=== PATIENT | female | born 1940 | race Caucasian/White ===

== ENCOUNTER → 2017-03-23 | Outpatient (CLI) | payer MEDICARE, BC ==
--- NOTE | 2017-03-23 13:31 | MM ---
Reason for exam: additional evaluation requested from prior study. Last mammogram was performed 1 year and 3 months ago. History: Patient is postmenopausal. No known family history of cancer. Excisional biopsy, January 06, 2012. Excisional biopsy of the left breast. Took estrogen for 2 years. Physical Findings: Nurse did not find any significant physical abnormalities on exam. MG Diagnostic Mammo w CAD MARITZA Bilateral CC and MLO view(s) were taken. Prior study comparison: December 10, 2015, left breast MG 3d work up w/cad LT. December 02, 2015, bilateral MG screening mammo w CAD. The breast tissue is heterogeneously dense. This may lower the sensitivity of mammography. Finding: There is a 7 mm equal density, round mass in the 6 o'clock lower quadrant, anterior position of the right breast. New finding since December 10, 2015 and December 02, 2015. These results were verbally communicated with the patient and result sheet given to the patient on 03/23/17. ASSESSMENT: Incomplete: need additional imaging evaluation, BI-RAD 0 RECOMMENDATION: Ultrasound of the right breast.
--- NOTE | 2017-03-23 13:32 | USB ---
Reason for exam: additional evaluation requested from abnormal screening. History: Patient is postmenopausal. No known family history of cancer. Excisional biopsy, January 06, 2012. Excisional biopsy of the left breast. Took estrogen for 2 years. US Breast Limited RT Right breast ultrasound indicates a 1.8 x 1.4 x 0.7cm oval, mixed lesion at 6 o'clock. No mammographic correlation although spotted in region on mammogram. Multiple cystic areas adjacent to lesion. These results were verbally communicated with the patient and result sheet given to the patient on 03/23/17. ASSESSMENT: Probably benign, BI-RAD 3 RECOMMENDATION: Follow-up diagnostic mammogram and ultrasound of the right breast in 6 months.
== END | disposition home or self-care (01) ==
LOC: RADMAMWWP 07:22
PROVIDERS: ATTEND Family Medicine
DX: R92.8 Other abnormal and inconclusive findings on diagnostic imaging of breast (principal)
CPT/HCPCS: 76642; G0204

== ENCOUNTER → 2017-03-23 | Outpatient (CLI) | payer MEDICARE, BC ==
--- NOTE | 2017-03-23 10:02 | CT ---
EXAMINATION TYPE: CT lumbar spine wo con DATE OF EXAM: 03/23/2017 COMPARISON: NONE HISTORY: Assess for Stenosis per order. Weakness in both legs per patient. CT DLP: 880 mGycm Automated exposure control for dose reduction was used. FINDINGS: There are 5 lumbar type vertebra identified. Lumbar spine shows satisfactory alignment without eviden ce of acute fracture or dislocation. Vertebral body heights and disc space heights are fairly well-ma intained. Spinal canal is fairly well preserved on sagittal images. No large posterior disc herniatio ns are seen. Mild multilevel anterior and lateral spurring is present. Axial images at T12-L1 and L1-L2 levels are felt within normal limits. Axial images at L2-L3 level show mild broad disc bulge but spinal canal is fairly well preserved and bilateral neural foramina are felt patent on axial image 29. Axial images at L3-L4 level show mild broad disc bulge and mild facet arthropathy bilaterally, spinal canal is slightly impinged along posterior lateral aspect on axial image 40. There is mild left grea ter than right anterior-inferior neural foraminal narrowing noted. Axial images at L4-L5 level show mild to moderate facet degenerative changes and ligamentum flavum hy pertrophy effacing posterior lateral thecal sac. There is mild broad disc bulge identified. There is mild right greater than left anterior inferior neural foraminal narrowing at this level identified. Axial images at L5-S1 level show moderate facet degenerative changes bilaterally. Spinal canal is wade rly well preserved. Bilateral neural foramina are patent. There is fairly moderate atherosclerotic change of visualized abdominal aorta. Some ectasia is seen n ear axial image 38, no greater than 3 cm aneurysmal change is noted. There is partial visualization o f a stimulator type device in the posterior pelvis soft tissue. IMPRESSION: Multilevel degenerative changes most prominent in the mid to lower lumbar spine as detailed above.
== END | disposition home or self-care (01) ==
LOC: RADCTMAIN 09:23
PROVIDERS: ATTEND Physical Medicine & Rehabilitation
DX: M47.816 Spondylosis without myelopathy or radiculopathy, lumbar region (principal)
CPT/HCPCS: 72131

== ENCOUNTER → 2018-05-25 | Outpatient (CLI) | payer MEDICARE, BC ==
--- NOTE | 2018-05-26 09:54 | MM ---
Reason for exam: additional evaluation requested from prior study. Last mammogram was performed 1 year and 2 months ago. History: Patient is postmenopausal. No known family history of cancer. Excisional biopsy, January 06, 2012. Excisional biopsy of the left breast. Took estrogen for 2 years. Physical Findings: Nurse did not find any significant physical abnormalities on exam. MG 3D Diag Mammo W/Cad MARITZA Bilateral CC and MLO view(s) were taken. Prior study comparison: March 23, 2017, bilateral MG diagnostic mammo w CAD MARITZA. December 10, 2015, left breast MG 3d work up w/cad LT. Right upper outer quadrant mass appears similar to priors and left upper inner quadrant mass appears similar to priors. Precautionary ultrasound will be performed. There are benign appearing calcifications in the right breast. These results were verbally communicated with the patient and result sheet given to the patient on 05/25/2018 ASSESSMENT: Incomplete: need additional imaging evaluation, BI-RAD 0 RECOMMENDATION: Ultrasound of both breasts. (upper outer quandrant left breast)
--- NOTE | 2018-05-26 10:02 | USB ---
Reason for exam: additional evaluation requested from abnormal screening. History: Patient is postmenopausal. No known family history of cancer. Excisional biopsy, January 06, 2012. Excisional biopsy of the left breast. Took estrogen for 2 years. US Breast Limited BILAT Right complete breast ultrasound includes all four quadrants, the retroareolar region and axilla. Finding demonstrates a 9 x 5 x 8 mm oval hypoechoic lesion at 1:00 o'clock, 6 month follow up recommended, a 5 x 2 x 7 mm lobulated hypoechoic lesion at 7 o'clock, 6 month follow up recommended and a 16 x 9 x 16mm lobular mixed hypoechoic lesion at 10 o'clock, cystic and benign. Left limited breast ultrasound including focal area of concern, retroareolar and axilla demonstrates a 10 x 8 x 8mm oval, solid, hypoechoic lesion at 11 o'clock, solid mass for which biopsy is recommended. These results were verbally communicated with the patient and result sheet given to the patient on 05/25/18. ASSESSMENT: Suspicious, BI-RAD 4 RECOMMENDATION: Ultrasound core biopsy of the left breast. Called Dr. Padilla with mammographic findings office will call and set appointment with patient and arrange biopsy. PRELIMINARY REPORT CALLED AND FAXED TO DR. PADILLA ON 05/26/18.
== END | disposition home or self-care (01) ==
LOC: RADMAMWWP 13:34
PROVIDERS: ATTEND Family Medicine
DX: R92.8 Other abnormal and inconclusive findings on diagnostic imaging of breast (principal)
CPT/HCPCS: 77066; 76642; G0279; 77062

== ENCOUNTER 2018-06-29 12:51 | Emergency (ER) | payer MEDICARE, BC ==
[2018-06-29 13:35] VITALS: RESP 18; TEMP 97.9
--- NOTE | 2018-06-29 14:18 | ED ---
General Adult HPI - General Chief complaint: Recheck/Abnormal Lab/Rx Stated complaint: hypertension Time Seen by Provider: 06/29/18 13:52 Source: patient, family, RN notes reviewed Mode of arrival: wheelchair Limitations: no limitations - History of Present Illness Initial comments: 77-year-old female presents to the emergency department for a chief complaint of hypertension. [facility] for a needle biopsy however patient's blood pressure was 204/117 so they refused to do the procedure and sent her to the emergency department. Patient states she stopped taking her for blood pressure medications 2 days ago because she was having swelling in her left leg and she wanted to see if it was her blood pressure medications causing it. Patient denies any symptoms at this time. She denies shortness of breath, chest pain, headache, visual changes, abdominal pain. Patient states she is feeling absolutely fine. She states she does have her prescriptions filled at home. She states she has an appointment with Dr. Padilla in the next couple days. Patient has no other complaints at this time. She denies fevers or chills. - Related Data Home Medications Medication Instructions Recorded Confirmed Atorvastatin [Lipitor] 20 mg PO DAILY 06/21/18 06/29/18 Furosemide [Lasix] 20 mg PO DAILY 06/21/18 06/29/18 NIFEdipine [Procardia XL] 90 mg PO DAILY 06/21/18 06/29/18 Nadolol [Corgard] 20 mg PO DAILY 06/21/18 06/29/18 Potassium Chloride [K-Tab ER] 10 meq PO DAILY 06/21/18 06/29/18 Valsartan [Diovan] 160 mg PO DAILY 06/21/18 06/29/18 Allergies Allergy/AdvReac Type Severity Reaction Status Date / Time No Known Allergies Allergy Verified 06/29/18 13:58 Review of Systems ROS Statement: Those systems with pertinent positive or pertinent negative responses have been documented in the HPI. ROS Other: All systems not noted in ROS Statement are negative. Past Medical History Past Medical History: Hyperlipidemia, Hypertension, Osteoarthritis (OA), Rheumatoid Arthritis (RA) History of Any Multi-Drug Resistant Organisms: None Reported Past Surgical History: Appendectomy, Bladder Surgery, Breast Surgery, Cholecystectomy, Hysterectomy, Tonsillectomy Additional Past Surgical History / Comment(s): Left breast benign excisional bx , bladder suspension, rectocele Past Anesthesia/Blood Transfusion Reactions: No Reported Reaction Past Psychological History: No Psychological Hx Reported Smoking Status: Former smoker Past Alcohol Use History: None Reported Past Drug Use History: None Reported General Exam Limitations: no limitations General appearance: alert, in no apparent distress (Sitting on edge of bed, in no distress.) Head exam: Present: atraumatic, normocephalic, normal inspection Eye exam: Present: normal appearance, PERRL, EOMI. Absent: scleral icterus, conjunctival injection, nystagmus, periorbital swelling, periorbital tenderness ENT exam: Present: normal exam, normal oropharynx, mucous membranes moist, normal external ear exam Neck exam: Present: normal inspection, full ROM. Absent: tenderness, meningismus, lymphadenopathy Respiratory exam: Present: normal lung sounds bilaterally. Absent: respiratory distress, wheezes, rales, rhonchi, stridor Cardiovascular Exam: Present: regular rate, normal rhythm, normal heart sounds. Absent: systolic murmur, diastolic murmur, rubs, gallop, clicks GI/Abdominal exam: Present: soft, normal bowel sounds. Absent: distended, tenderness, guarding, rebound, rigid Extremities exam: Present: full ROM (moving all extremities) Back exam: Absent: tenderness Neurological exam: Present: alert, oriented X3, CN II-XII intact, normal gait. Absent: motor sensory deficit Psychiatric exam: Present: normal affect, normal mood Skin exam: Present: warm, dry, intact, normal color. Absent: rash Course Vital Signs 06/29/18 06/29/18 13:31 14:30 Temperature 97.9 F Pulse Rate 68 65 Respiratory 18 18 Rate Blood Pressure 160/88 198/81 O2 Sat by Pulse 95 96 Oximetry Medical Decision Making - Medical Decision Making 77-year-old [place] female presents to the emergency department for a chief complaint of hypertension. [facility] and her blood pressure was 204/117 so they sent her to the emergency department. On presentation today blood pressure is 160/88. Patient is completely asymptomatic. She denies any shortness of breath, chest pain, abdominal pain, headache, visual changes, dizziness, confusion. Patient is alert and oriented. No focal neuro deficits. Patient has not taken blood pressure medications in 2 days due to intermittent swelling in the left leg. She states she was trying to see if her blood pressure medications caused this. No swelling in the left leg at this time. Patient did not want medications for blood pressure here in the emergency department because she states she has them at home and would rather not wait. Repeat blood pressure was 198/81. Patient's blood pressure medications were ordered here and given before discharge which she did agree to. Patient states she is ready to go home and will continue her BP medications as directed. She has an appointment with primary care this week and she will follow-up for hypertension at that time. Patient aware to return to the emergency department if she has any symptoms which were discussed with her. Disposition Clinical Impression: Hypertension, Normal exam Disposition: HOME SELF-CARE Condition: Good Instructions: Hypertension (ED) Additional Instructions: Take blood pressure medications when you return home. Please follow up with primary care in 1-2 days to discuss medication regimen. Return to the emergency department if you develop any symptoms such as shortness of breath, chest pain, headache, visual changes, abdominal pain. Is patient prescribed a controlled substance at d/c from ED?: No Referrals: Bradley Padilla MD [Primary Care Provider] - 1-2 days Time of Disposition: 14:17
[2018-06-29] MEDS ORDERED: VALSARTAN 160 MG TAB PO STA (14:29)
[2018-06-29] MEDS ORDERED: NADOLOL 20 MG TAB PO STA (14:30)
[2018-06-29] MEDS ORDERED: NIFEdipine XL 90 MG TAB.ER.24 PO STA (14:30)
[2018-06-29 14:31] VITALS: BP 198/81; PULSE 65
[2018-06-29] MEDS ORDERED: FUROSEMIDE 20 MG TAB PO STA (14:31)
[2018-06-29] MEDS ORDERED: VALSARTAN 40 MG TAB PO STA (14:34)
== END 2018-06-29 15:14 | disposition home or self-care (01) ==
LOC: EC 12:51
DX: I10 Essential (primary) hypertension (principal); E78.5 Hyperlipidemia, unspecified; Z87.891 Personal history of nicotine dependence; Z90.49 Acquired absence of other specified parts of digestive tract; Z90.710 Acquired absence of both cervix and uterus; Z98.890 Other specified postprocedural states; Z79.899 Other long term (current) drug therapy
CPT/HCPCS: 99283

== ENCOUNTER → 2018-06-29 | Day surgery (SDC) | payer MEDICARE, BC ==
[2018-06-29 11:44] VITALS: PULSE 71; RESP 16; TEMP 98.5; BMI 33.9
[2018-06-29 13:29] VITALS: BP 203/79
--- NOTE | 2018-06-29 17:43 | USB ---
EXAMINATION TYPE: US discontinued breast bx LT DATE OF EXAM: 06/29/2018 COMPARISON: 05/25/2018 HISTORY: 77-year-old female referred for ultrasound-guided left breast biopsy, 11:00 lesion. TECHNIQUE: Patient was initially scanned, left breast 11:00 in the circumscribed heterogeneous lesion is identified. However, the patient's blood pressure was elevated initially 180/90. Recheck showed 160/90. Subsequen tly, blood pressure was 200 systolic. Patient reports having known hypertension and did not take her medication. Biopsy deferred at this time and the patient is referred to the emergency room. The patient was escor ed via wheelchair by nursing personnel. Dr. Padilla's office was notified of the canceled procedure. Patient given instructions to call back to reschedule biopsy. IMPRESSION: Canceled left breast 11:00 biopsy due to excessive hypertension. Patient escorted to the ER. Patient given instructions to call back to reschedule.
== END ==
LOC: RADUSWWP 11:12
PROVIDERS: ATTEND Surgery
DX: R92.8 Other abnormal and inconclusive findings on diagnostic imaging of breast (principal); Z53.8 Procedure and treatment not carried out for other reasons

== ENCOUNTER → 2018-07-18 | Day surgery (SDC) | payer MEDICARE, BC ==
[2018-07-18 07:53] VITALS: RESP 16; BMI 33.7
[2018-07-18 09:12] VITALS: BP 200/78; PULSE 62; TEMP 98.4
--- NOTE | 2018-07-18 09:57 | USB ---
EXAMINATION TYPE: US breast aspiration single LT, MG diagnostic mammo LT wo CAD DATE OF EXAM: 07/18/2018 CLINICAL HISTORY: R92.8 Abnormal Mammogram. Abnormal ultrasound TECHNIQUE: Ultrasound guided fine-needle aspiration and/or core biopsy of left breast with clip placement and follow-up two-view mammogram. COMPARISON: Ultrasounds June 29, 2018 and May 25, 2018. Mammogram May and older studies. FINDINGS: The procedure of ultrasound guided fine-needle aspiration and/or core biopsy were both explained to the patient. Benefits, alternatives, and risks were discussed. An informed consent was then obtained. The patient was placed in supine positioning for imaging and for the procedure. Preprocedure imaging redemonstrates a round well-circumscribed heterogeneous hypoechoic roughly 9 mm lesion at 11:00 position zone A in the left breast. The overlying skin was prepped and draped in usual sterile fashion. Lidocaine buffered with bicarbonate was used as anesthetic into the skin and subcutaneous tissue up to area of concern in the left breast. Under ultrasound guidance, a 18-gauge needle was advanced into the lesion which has thick wall. There is successful complete aspiration of lesion. Approximately 1 cc of dark-colored fluid was aspirated. Coil clip was placed at site of lesion under ultrasound guidance. Biopsy was not performed since no residual solid component was present. The patient tolerated the procedure well without any immediate complication. The patient was kept in the radiology department for short stay after the procedure and then discharged home in stable condition. Post procedure mammogram shows successful deployment of clip corresponding to location of previously visualized mass which is not clearly seen after aspiration. IMPRESSION: Successful, uncomplicated ultrasound guided fine-needle aspiration of area of concern in the left breast, full pathology results to follow. Low index of suspicion noted at time of procedure. Patient states history of significant hematoma in the left breast in the past. Suspect this is residual hematoma from remote trauma. Patient continue to have elevated blood pressure prior to and during procedure. Instructed patient to continue to follow up with primary care physician to obtain better control of this. Pathology Results: Benign LEFT BREAST CYST AT 11:00, ULTRASOUND GUIDED ASPIRATION: Numerous hemosiderin laden macrophages, red blood cells and very rare, partially degenerated benign duct epithelial cells all consistent with hemorrhagic breast cyst. Recommendation Follow up ultrasound of the left breast in 6 months. ANNIE
== END | disposition home or self-care (01) ==
LOC: RADUSWWP 07:24
PROVIDERS: ATTEND Surgery
DX: N60.02 Solitary cyst of left breast (principal); R92.8 Other abnormal and inconclusive findings on diagnostic imaging of breast
CPT/HCPCS: 88108; 88305; 77065; 10022; A4648; J2001; 76942

== ENCOUNTER 2018-10-25 19:53 | Emergency (ER) | payer MEDICARE, BC ==
[2018-10-25] MEDS ORDERED: SODIUM CHLORIDE 0.9% 1,000 ML IV STA (20:08)
--- NOTE | 2018-10-25 20:08 | ED ---
Weakness HPI - General Chief complaint: Weakness Stated complaint: weakness Time Seen by Provider: 10/25/18 20:07 Source: patient, EMS, RN notes reviewed, old records reviewed Mode of arrival: EMS Limitations: no limitations, physical limitation - History of Present Illness Initial comments: This is a 78-year-old female the ER for evaluation of weakness 8 weakness and debility decreased ability to ambulate and perform daily ADLs. Patient is brought in by EMS, states that he is having difficulty walking. Denies change in medication -: unknown Location: generalized Severity: mild Severity scale (1-10): 2 Quality: other (No pain) Consistency: constant Improves with: none Worsens with: none Associated Symptoms: denies other symptoms - Related Data Home Medications Medication Instructions Recorded Confirmed Atorvastatin [Lipitor] 20 mg PO DAILY 06/21/18 10/25/18 Furosemide [Lasix] 20 mg PO DAILY 06/21/18 10/25/18 Nadolol [Corgard] 40 mg PO DAILY 06/21/18 10/25/18 Potassium Chloride [K-Tab ER] 10 meq PO DAILY 06/21/18 10/25/18 Losartan [Cozaar] 50 mg PO DAILY 10/25/18 10/25/18 Allergies Allergy/AdvReac Type Severity Reaction Status Date / Time No Known Allergies Allergy Verified 10/25/18 20:12 Review of Systems ROS Statement: Those systems with pertinent positive or pertinent negative responses have been documented in the HPI. ROS Other: All systems not noted in ROS Statement are negative. Past Medical History Past Medical History: Hyperlipidemia, Hypertension, Osteoarthritis (OA), Rheumatoid Arthritis (RA) History of Any Multi-Drug Resistant Organisms: None Reported Past Surgical History: Appendectomy, Bladder Surgery, Breast Surgery, Cholecystectomy, Hysterectomy, Tonsillectomy Additional Past Surgical History / Comment(s): Left breast benign excisional bx , bladder suspension, rectocele Past Anesthesia/Blood Transfusion Reactions: No Reported Reaction Past Psychological History: No Psychological Hx Reported Smoking Status: Former smoker Past Alcohol Use History: None Reported Past Drug Use History: None Reported General Exam Limitations: no limitations, physical limitation General appearance: alert, in no apparent distress Head exam: Present: atraumatic, normocephalic, normal inspection Eye exam: Present: normal appearance, PERRL, EOMI. Absent: scleral icterus, conjunctival injection, periorbital swelling ENT exam: Present: normal exam, mucous membranes moist Neck exam: Present: normal inspection. Absent: tenderness, meningismus, lymphadenopathy Respiratory exam: Present: normal lung sounds bilaterally. Absent: respiratory distress, wheezes, rales, rhonchi, stridor Cardiovascular Exam: Present: regular rate, normal rhythm, normal heart sounds. Absent: systolic murmur, diastolic murmur, rubs, gallop, clicks GI/Abdominal exam: Present: soft, normal bowel sounds. Absent: distended, tenderness, guarding, rebound, rigid Extremities exam: Present: normal inspection, full ROM, normal capillary refill. Absent: tenderness, pedal edema, joint swelling, calf tenderness Back exam: Present: normal inspection Neurological exam: Present: alert, oriented X3, CN II-XII intact Psychiatric exam: Present: normal affect, normal mood Skin exam: Present: warm, dry, intact, normal color. Absent: rash Course Vital Signs 10/25/18 10/25/18 10/25/18 20:00 20:38 21:40 Temperature 99.2 F Pulse Rate 82 80 80 Respiratory 18 18 Rate Blood Pressure 227/108 216/116 176/88 O2 Sat by Pulse 98 96 Oximetry 10/25/18 10/25/18 10/26/18 22:32 23:10 00:50 Temperature 98.4 F 98 F Pulse Rate 79 77 88 Respiratory 18 20 Rate Blood Pressure 195/116 189/87 179/89 O2 Sat by Pulse 98 97 Oximetry - Reevaluation(s) Reevaluation #1: Record is reviewed and noncontributory EKG Findings - EKG Comments: EKG Findings:: EKG shows sinus rhythm rate of 77, GA 166, QRS 82, QTc 445 Medical Decision Making - Medical Decision Making 78 female the ER for evaluation of increased weakness, decreased ability to walk. Patient is here with , he states normal findings currently he will like to take patient home he will work on trying to find increased help or home care for home - Lab Data Result diagrams: 10/25/18 20:17 10/25/18 20:17 Lab Results 10/25/18 10/25/18 10/25/18 Range/Units 20:17 20:17 20:17 WBC 16.5 H (3.8-10.6) k/uL RBC 4.70 (3.80-5.40) m/uL Hgb 14.1 (11.4-16.0) gm/dL Hct 42.2 (34.0-46.0) % MCV 89.7 (80.0-100.0) fL MCH 30.0 (25.0-35.0) pg MCHC 33.5 (31.0-37.0) g/dL RDW 13.3 (11.5-15.5) % Plt Count 351 (150-450) k/uL Neutrophils % 89 % Lymphocytes % 6 % Monocytes % 4 % Eosinophils % 1 % Basophils % 0 % Neutrophils # 14.7 H (1.3-7.7) k/uL Lymphocytes # 1.0 (1.0-4.8) k/uL Monocytes # 0.6 (0-1.0) k/uL Eosinophils # 0.1 (0-0.7) k/uL Basophils # 0.0 (0-0.2) k/uL Sodium 140 (137-145) mmol/L Potassium 3.9 (3.5-5.1) mmol/L Chloride 107 (98-107) mmol/L Carbon Dioxide 23 (22-30) mmol/L Anion Gap 10 mmol/L BUN 14 (7-17) mg/dL Creatinine 0.54 (0.52-1.04) mg/dL Est GFR (CKD-EPI)AfAm >90 (>60 ml/min/1.73 sqM) Est GFR (CKD-EPI)NonAf >90 (>60 ml/min/1.73 sqM) Glucose 126 H (74-99) mg/dL Calcium 8.9 (8.4-10.2) mg/dL Phosphorus 2.5 (2.5-4.5) mg/dL Magnesium 2.0 (1.6-2.3) mg/dL Total Bilirubin 0.7 (0.2-1.3) mg/dL AST 37 H (14-36) U/L ALT 32 (9-52) U/L Alkaline Phosphatase 114 (38-126) U/L Total Creatine Kinase 44 (30-135) U/L CK-MB (CK-2) 0.7 (0.0-2.4) ng/mL CK-MB (CK-2) Rel Index 1.6 Troponin I 0.067 H* (0.000-0.034) ng/mL Total Protein 6.9 (6.3-8.2) g/dL Albumin 4.1 (3.5-5.0) g/dL Urine Color Urine Appearance (Clear) Urine pH (5.0-8.0) Ur Specific [place] (1.001-1.035) Urine Protein (Negative) Urine Glucose (UA) (Negative) Urine Ketones (Negative) Urine Blood (Negative) Urine Nitrite (Negative) Urine Bilirubin (Negative) Urine Urobilinogen (<2.0) mg/dL Ur Leukocyte Esterase (Negative) 10/25/18 Range/Units 21:56 WBC (3.8-10.6) k/uL RBC (3.80-5.40) m/uL Hgb (11.4-16.0) gm/dL Hct (34.0-46.0) % MCV (80.0-100.0) fL MCH (25.0-35.0) pg MCHC (31.0-37.0) g/dL RDW (11.5-15.5) % Plt Count (150-450) k/uL Neutrophils % % Lymphocytes % % Monocytes % % Eosinophils % % Basophils % % Neutrophils # (1.3-7.7) k/uL Lymphocytes # (1.0-4.8) k/uL Monocytes # (0-1.0) k/uL Eosinophils # (0-0.7) k/uL Basophils # (0-0.2) k/uL Sodium (137-145) mmol/L Potassium (3.5-5.1) mmol/L Chloride (98-107) mmol/L Carbon Dioxide (22-30) mmol/L Anion Gap mmol/L BUN (7-17) mg/dL Creatinine (0.52-1.04) mg/dL Est GFR (CKD-EPI)AfAm (>60 ml/min/1.73 sqM) Est GFR (CKD-EPI)NonAf (>60 ml/min/1.73 sqM) Glucose (74-99) mg/dL Calcium (8.4-10.2) mg/dL Phosphorus (2.5-4.5) mg/dL Magnesium (1.6-2.3) mg/dL Total Bilirubin (0.2-1.3) mg/dL AST (14-36) U/L ALT (9-52) U/L Alkaline Phosphatase (38-126) U/L Total Creatine Kinase (30-135) U/L CK-MB (CK-2) (0.0-2.4) ng/mL CK-MB (CK-2) Rel Index Troponin I (0.000-0.034) ng/mL Total Protein (6.3-8.2) g/dL Albumin (3.5-5.0) g/dL Urine Color Light Yellow Urine Appearance Clear (Clear) Urine pH 7.5 (5.0-8.0) Ur Specific [place] 1.006 (1.001-1.035) Urine Protein Negative (Negative) Urine Glucose (UA) Negative (Negative) Urine Ketones Trace H (Negative) Urine Blood Negative (Negative) Urine Nitrite Negative (Negative) Urine Bilirubin Negative (Negative) Urine Urobilinogen <2.0 (<2.0) mg/dL Ur Leukocyte Esterase Negative (Negative) - Radiology Data Radiology results: report reviewed (CT lumbosacral spine negative for acute disease), image reviewed Disposition Clinical Impression: Weakness Disposition: HOME SELF-CARE Condition: Good Instructions: Weakness (ED) Is patient prescribed a controlled substance at d/c from ED?: No Referrals: Bradley Padilla MD [Primary Care Provider] - 1-2 days
[2018-10-25 20:28] LABS: Basophils % (A) 0 %; Eosinophils # (A) 0.1 k/uL (0-0.7); Eosinophils % (A) 1 %; HCT 42.2 % (34.0-46.0); HGB 14.1 gm/dL (11.4-16.0); Lymphocytes % (A) 6 %; MCHC 33.5 g/dL (31.0-37.0); MCV 89.7 fL (80.0-100.0); Monocytes # (A) 0.6 k/uL (0-1.0); Monocytes % (A) 4 %; Neutrophils # (A) 14.7 k/uL (1.3-7.7); Neutrophils % (A) 89 %; Platelet Count 351 k/uL (150-450); RDW 13.3 % (11.5-15.5); WBC 16.5 k/uL (3.8-10.6)
[2018-10-25 20:37] LABS: ALT 32 U/L (9-52); AST 37 U/L (14-36); Albumin 4.1 g/dL (3.5-5.0); Alkaline Phosphatase 114 U/L (38-126); Anion Gap 10 mmol/L; Blood Urea Nitrogen 14 mg/dL (7-17); Calcium 8.9 mg/dL (8.4-10.2); Carbon Dioxide 23 mmol/L (22-30); Chloride 107 mmol/L (98-107); Glucose 126 mg/dL (74-99); Phosphorus 2.5 mg/dL (2.5-4.5); Sodium 140 mmol/L (137-145); Total Bilirubin 0.7 mg/dL (0.2-1.3); Total Protein 6.9 g/dL (6.3-8.2)
[2018-10-25 20:41] LABS: Potassium 3.9 mmol/L (3.5-5.1)
[2018-10-25 21:14] LABS: Creatine Kinase MB 0.7 ng/mL (0.0-2.4)
[2018-10-25 21:21] LABS: Troponin I 0.067 ng/mL (0.000-0.034)
[2018-10-25] MEDS ORDERED: LABETALOL SYRINGE 5 MG/ML IVP STA (21:27)
[2018-10-25 22:13] LABS: Appearance,Urine Clear (Clear); Bilirubin,Urine Negative (Negative); Blood,Urine Negative (Negative); Color,Urine Light Yellow; Glucose,Urine (UA) Negative (Negative); Ketones,Urine Trace (Negative); Leukocyte Esterase,Urine Negative (Negative); Nitrite,Urine Negative (Negative); PH, Urine 7.5 (5.0-8.0); Protein,Urine Negative (Negative); Specific Gravity,Urine 1.006 (1.001-1.035); Urobilinogen,Urine <2.0 mg/dL (<2.0)
--- NOTE | 2018-10-25 23:12 | CT ---
EXAMINATION TYPE: CT lumbar spine wo con DATE OF EXAM: 10/25/2018 11:03 PM COMPARISON: 03/23/2017 HISTORY: Weakness, difficulty walking. No contrast. CT DLP: 1005.4 mGycm Automated exposure control for dose reduction was used. Unenhanced CT of the lumbar spine was performed. Bone and soft tissue window settings are submitted as well as coronal and sagittal reconstructions. Lumbar vertebra have fairly normal spacing and alignment for the patient's age. There is osteopenia. Abdominal aorta is atheromatous. There is no compression fracture. The posterior elements are intact. There is no lumbar paraspinal mass. There is mild facet arthropathy in the lower lumbar spine. There is no evidence of spinal stenosis. Sacroiliac joints appear intact. IMPRESSION: Atheromatous aorta. Negative CT scan lumbar spine. No fracture. This spaces are well-maintained. No c hange compared to old exam. Mild posterior disc bulging at L3-4 L4-5 unchanged and without significan t impingement on the neural elements.
--- NOTE | 2018-10-25 23:16 | CT ---
EXAMINATION TYPE: CT sacrum wo con DATE OF EXAM: 10/25/2018 COMPARISON: HISTORY: Weakness, difficulty walking. No contrast. CT DLP: 1005.4 mGycm Automated exposure control for dose reduction was used. FINDINGS: Multiple axial sections were obtained from the level of L4-S5 vertebra with no contrast. Segments of normal alignment. Sacroiliac joints are intact. There is no focal bone destruction. I see no fracture. There is mild osteopenia. Visualized hip joints are intact. Abdominal aorta is atheroma tous. There is extensive diverticula in the sigmoid colon. There is small amount of free fluid in the pelvis. There is partial visualization of the small bowel mesentery which shows some minimal fat str anding. IMPRESSION: NO ACUTE ABNORMALITY OF THE SACRUM AND COCCYX. IMPLANT NOTED OVER THE LEFT BUTTOCK. NO FRACTURE. ATHEROSCLEROTIC VASCULAR DISEASE. SIGMOID DIVERTICULOSIS. THERE IS SOME FLUID IN THE PEL VIS AND ALSO SOME MESENTERIC EDEMA. THERE IS COULD BE DUE TO INFLAMMATORY PROCESSES WITHIN THE ABDOME N.
[2018-10-26 01:01] VITALS: BP 179/89; PULSE 88; RESP 20; TEMP 98
== END 2018-10-26 00:50 | disposition home or self-care (01) ==
LOC: EC 19:53
DX: R53.1 Weakness (principal); R26.2 Difficulty in walking, not elsewhere classified; E78.5 Hyperlipidemia, unspecified; I10 Essential (primary) hypertension; Z87.891 Personal history of nicotine dependence; Z79.899 Other long term (current) drug therapy
CPT/HCPCS: 36415; 72131; 72192; 80053; 81003; 82550; 82553; 83735; 84100; 84484; 85025; 87077; 87086; 87186; 93005; 96361; 96374; 99285

== ENCOUNTER → 2018-11-11 | Outpatient (CLI) | payer MEDICARE, BC ==
--- NOTE | 2018-11-11 15:15 | US ---
EXAMINATION TYPE: US venous doppler duplex LE DATE OF EXAM: 11/11/2018 2:04 PM COMPARISON: NONE CLINICAL HISTORY: Z86.18 Deep Vein Thrombosis. patient states not being very mobile. Patient states sometimes the left leg swells and having a hx of blood clot in left leg with last many year s ago SIDE PERFORMED: Bilateral TECHNIQUE: The lower extremity deep venous system is examined utilizing real time linear array sonog boubacar with graded compression, doppler sonography and color-flow sonography. VESSELS IMAGED: External Iliac Vein (EIV) Common Femoral Vein Deep Femoral Vein Greater Saphenous Vein * Femoral Vein Popliteal Vein Small Saphenous Vein * Proximal Calf Veins (* superficial vessels) Right Leg: Negative for DVT Left Leg: Negative for DVT IMPRESSION: 1. Bilateral lower extremity ultrasound negative for deep venous thrombosis.
== END | disposition home or self-care (01) ==
LOC: RADUSWWP 13:26
PROVIDERS: ATTEND Internal Medicine Interventional Cardiology
DX: M79.89 Other specified soft tissue disorders (principal); Z86.718 Personal history of other venous thrombosis and embolism
CPT/HCPCS: 93970

== ENCOUNTER 2018-11-24 12:23 | Observation (INO) | payer MEDICARE, BC ==
[2018-11-24] MEDS ORDERED: SODIUM CHLORIDE 0.9% 500 ML 500 ML IV STA (13:05)
--- NOTE | 2018-11-24 13:38 | ED ---
General Adult HPI - General Chief complaint: Weakness Stated complaint: weakness Time Seen by Provider: 11/24/18 12:48 Source: patient, RN notes reviewed, old records reviewed Mode of arrival: wheelchair Limitations: no limitations - History of Present Illness Initial comments: 78-year-old female presents for evaluation of generalized weakness, and difficult ambulating. Patient has had progressive symptoms over the past one month. She was seen by her primary care physician earlier in the week and had had a fall at that time. She did report some left knee and left hip pain but she has been ambulatory since the fall. Denies chest pain. Denies significant dyspnea. Denies fever or chills. Denies abdominal pain. Denies nausea vomiting, denies diarrhea. Denies dysuria, denies increased urinary frequency or urgency. No headache, denies focal numbness or weakness. - Related Data Home Medications Medication Instructions Recorded Confirmed Atorvastatin [Lipitor] 20 mg PO DAILY 06/21/18 11/24/18 Furosemide [Lasix] 20 mg PO DAILY 06/21/18 11/24/18 Nadolol [Corgard] 20 mg PO DAILY 06/21/18 11/24/18 Potassium Chloride [K-Tab ER] 10 meq PO DAILY 06/21/18 11/24/18 Losartan [Cozaar] 50 mg PO DAILY 10/25/18 11/24/18 Allergies Allergy/AdvReac Type Severity Reaction Status Date / Time No Known Allergies Allergy Verified 11/24/18 13:04 Review of Systems ROS Statement: Those systems with pertinent positive or pertinent negative responses have been documented in the HPI. ROS Other: All systems not noted in ROS Statement are negative. Past Medical History Past Medical History: Hyperlipidemia, Hypertension, Osteoarthritis (OA), Rheumatoid Arthritis (RA) History of Any Multi-Drug Resistant Organisms: None Reported Past Surgical History: Appendectomy, Bladder Surgery, Breast Surgery, Cholecystectomy, Hysterectomy, Tonsillectomy Additional Past Surgical History / Comment(s): Left breast benign excisional bx , bladder suspension, rectocele Past Anesthesia/Blood Transfusion Reactions: No Reported Reaction Past Psychological History: No Psychological Hx Reported Smoking Status: Former smoker Past Alcohol Use History: None Reported Past Drug Use History: None Reported General Exam Limitations: no limitations General appearance: alert, in no apparent distress Head exam: Present: atraumatic, normocephalic Eye exam: Present: normal appearance, PERRL ENT exam: Present: normal exam Neck exam: Present: normal inspection. Absent: tenderness, meningismus Respiratory exam: Present: normal lung sounds bilaterally. Absent: respiratory distress, wheezes Cardiovascular Exam: Present: normal rhythm, bradycardia GI/Abdominal exam: Present: soft. Absent: distended, tenderness, guarding, rebound Extremities exam: Present: normal inspection, normal capillary refill. Absent: pedal edema Neurological exam: Present: alert, oriented X3. Absent: motor sensory deficit Psychiatric exam: Present: normal affect, normal mood Skin exam: Present: warm, dry, intact. Absent: cyanosis, diaphoretic Course Vital Signs 11/24/18 11/24/18 11/24/18 12:33 14:20 14:30 Temperature 97.7 F Pulse Rate 55 L 60 50 L Respiratory 16 18 18 Rate Blood Pressure 197/79 189/76 205/78 O2 Sat by Pulse 95 98 100 Oximetry EKG Findings - EKG Comments: EKG Findings:: EKG: Sinus bradycardia, left ventricular hypertrophy, no ST segment elevation or depression, rate 53, MD interval 158, QRS duration 84, QTC 446 Medical Decision Making - Medical Decision Making 78-year-old female presenting with progressive weakness and difficulty with ambulation. Workup in the emergency department reveals normal CBC, normal CMP, urinalysis negative for infection, head CT does show volume loss, possible normal pressure hydrocephalus. Patient has no ataxia no urinary incontinence. Head CT negative for intracranial hemorrhage. Chest x-ray does show concern for vascular congestion all patient is not complaining of dyspnea at this time, no focal pneumonia. X-rays of the hip and knee are obtained secondary to fall occurred 4 days prior. No acute bony abnormality. Patient will be admitted for further evaluation and treatment concern for multiple falls, patient may require rehabilitation. Case discussed with admitting physician will accept. - Lab Data Result diagrams: 11/24/18 13:30 11/24/18 13:30 Lab Results 11/24/18 11/24/18 11/24/18 Range/Units 13:30 13:30 13:30 WBC 9.1 (3.8-10.6) k/uL RBC 4.70 (3.80-5.40) m/uL Hgb 13.5 (11.4-16.0) gm/dL Hct 42.1 (34.0-46.0) % MCV 89.4 (80.0-100.0) fL MCH 28.6 (25.0-35.0) pg MCHC 32.0 (31.0-37.0) g/dL RDW 14.1 (11.5-15.5) % Plt Count 305 (150-450) k/uL Neutrophils % 71 % Lymphocytes % 20 % Monocytes % 7 % Eosinophils % 1 % Basophils % 0 % Neutrophils # 6.4 (1.3-7.7) k/uL Lymphocytes # 1.8 (1.0-4.8) k/uL Monocytes # 0.6 (0-1.0) k/uL Eosinophils # 0.1 (0-0.7) k/uL Basophils # 0.0 (0-0.2) k/uL PT (9.0-12.0) sec INR (<1.2) APTT (22.0-30.0) sec Sodium 141 (137-145) mmol/L Potassium 3.5 (3.5-5.1) mmol/L Chloride 102 (98-107) mmol/L Carbon Dioxide 29 (22-30) mmol/L Anion Gap 10 mmol/L BUN 21 H (7-17) mg/dL Creatinine 0.72 (0.52-1.04) mg/dL Est GFR (CKD-EPI)AfAm >90 (>60 ml/min/1.73 sqM) Est GFR (CKD-EPI)NonAf 81 (>60 ml/min/1.73 sqM) Glucose 103 H (74-99) mg/dL Plasma Lactic Acid Petey (0.7-2.0) mmol/L Calcium 9.0 (8.4-10.2) mg/dL Magnesium 1.6 (1.6-2.3) mg/dL Total Bilirubin 1.0 (0.2-1.3) mg/dL AST 23 (14-36) U/L ALT 25 (9-52) U/L Alkaline Phosphatase 87 (38-126) U/L Total Creatine Kinase 36 (30-135) U/L CK-MB (CK-2) 0.5 (0.0-2.4) ng/mL CK-MB (CK-2) Rel Index 1.4 Troponin I 0.015 (0.000-0.034) ng/mL Total Protein 7.1 (6.3-8.2) g/dL Albumin 4.1 (3.5-5.0) g/dL Urine Color Urine Appearance (Clear) Urine pH (5.0-8.0) Ur Specific [place] (1.001-1.035) Urine Protein (Negative) Urine Glucose (UA) (Negative) Urine Ketones (Negative) Urine Blood (Negative) Urine Nitrite (Negative) Urine Bilirubin (Negative) Urine Urobilinogen (<2.0) mg/dL Ur Leukocyte Esterase (Negative) Urine WBC (0-5) /hpf Ur Squamous Epith Cells (0-4) /hpf Urine Bacteria (None) /hpf Urine Mucus (None) /hpf 11/24/18 11/24/18 11/24/18 Range/Units 13:30 13:30 14:18 WBC (3.8-10.6) k/uL RBC (3.80-5.40) m/uL Hgb (11.4-16.0) gm/dL Hct (34.0-46.0) % MCV (80.0-100.0) fL MCH (25.0-35.0) pg MCHC (31.0-37.0) g/dL RDW (11.5-15.5) % Plt Count (150-450) k/uL Neutrophils % % Lymphocytes % % Monocytes % % Eosinophils % % Basophils % % Neutrophils # (1.3-7.7) k/uL Lymphocytes # (1.0-4.8) k/uL Monocytes # (0-1.0) k/uL Eosinophils # (0-0.7) k/uL Basophils # (0-0.2) k/uL PT 10.3 (9.0-12.0) sec INR 1.0 (<1.2) APTT 23.4 (22.0-30.0) sec Sodium (137-145) mmol/L Potassium (3.5-5.1) mmol/L Chloride (98-107) mmol/L Carbon Dioxide (22-30) mmol/L Anion Gap mmol/L BUN (7-17) mg/dL Creatinine (0.52-1.04) mg/dL Est GFR (CKD-EPI)AfAm (>60 ml/min/1.73 sqM) Est GFR (CKD-EPI)NonAf (>60 ml/min/1.73 sqM) Glucose (74-99) mg/dL Plasma Lactic Acid Petey 1.1 (0.7-2.0) mmol/L Calcium (8.4-10.2) mg/dL Magnesium (1.6-2.3) mg/dL Total Bilirubin (0.2-1.3) mg/dL AST (14-36) U/L ALT (9-52) U/L Alkaline Phosphatase (38-126) U/L Total Creatine Kinase (30-135) U/L CK-MB (CK-2) (0.0-2.4) ng/mL CK-MB (CK-2) Rel Index Troponin I (0.000-0.034) ng/mL Total Protein (6.3-8.2) g/dL Albumin (3.5-5.0) g/dL Urine Color Light Yellow Urine Appearance Cloudy H (Clear) Urine pH 6.0 (5.0-8.0) Ur Specific [place] 1.010 (1.001-1.035) Urine Protein Negative (Negative) Urine Glucose (UA) Negative (Negative) Urine Ketones Negative (Negative) Urine Blood Negative (Negative) Urine Nitrite Negative (Negative) Urine Bilirubin Negative (Negative) Urine Urobilinogen <2.0 (<2.0) mg/dL Ur Leukocyte Esterase Trace H (Negative) Urine WBC 2 (0-5) /hpf Ur Squamous Epith Cells 4 (0-4) /hpf Urine Bacteria Rare H (None) /hpf Urine Mucus Rare H (None) /hpf Disposition Clinical Impression: Weakness Disposition: ADMITTED IP TO THIS [facility] Condition: Stable Is patient prescribed a controlled substance at d/c from ED?: No Referrals: Bradley Padilla MD [Primary Care Provider] - 1-2 days Decision to Admit Reason: Admit from EC Decision Date: 11/24/18 Decision Time: 16:14
[2018-11-24 13:53] LABS: Basophils % (A) 0 %; Eosinophils # (A) 0.1 k/uL (0-0.7); Eosinophils % (A) 1 %; HCT 42.1 % (34.0-46.0); HGB 13.5 gm/dL (11.4-16.0); Lymphocytes # (A) 1.8 k/uL (1.0-4.8); Lymphocytes % (A) 20 %; MCH 28.6 pg (25.0-35.0); MCV 89.4 fL (80.0-100.0); Mean Platelet Volume 7.2; Monocytes # (A) 0.6 k/uL (0-1.0); Monocytes % (A) 7 %; Neutrophils # (A) 6.4 k/uL (1.3-7.7); Neutrophils % (A) 71 %; Platelet Count 305 k/uL (150-450); RDW 14.1 % (11.5-15.5); WBC 9.1 k/uL (3.8-10.6)
[2018-11-24 14:03] LABS: ALT 25 U/L (9-52); AST 23 U/L (14-36); Albumin 4.1 g/dL (3.5-5.0); Alkaline Phosphatase 87 U/L (38-126); Anion Gap 10 mmol/L; Blood Urea Nitrogen 21 mg/dL (7-17); Carbon Dioxide 29 mmol/L (22-30); Chloride 102 mmol/L (98-107); Glucose 103 mg/dL (74-99); Magnesium 1.6 mg/dL (1.6-2.3); Potassium 3.5 mmol/L (3.5-5.1); Sodium 141 mmol/L (137-145); Total Protein 7.1 g/dL (6.3-8.2)
[2018-11-24 14:06] LABS: Partial Thromboplastin Time 23.4 sec (22.0-30.0); Prothrombin Time 10.3 sec (9.0-12.0)
--- NOTE | 2018-11-24 14:22 | CT ---
EXAMINATION TYPE: CT brain wo con DATE OF EXAM: 11/24/2018 COMPARISON: None HISTORY: 78-year-old female Weakness TECHNIQUE: Examination was done in axial plane without intravenous contrast. Coronal and sagittal r econstructions performed. CT DLP: 968.2 mGycm Automated exposure control for dose reduction was used. FINDINGS: There is no evidence of acute intracranial hemorrhage, acute ischemic changes, mass, mass-effect, or extra-axial fluid collection. There is no effacement of cerebral sulci or basal subarachnoid cister ns. There is no midline shift. Delgado-white matter distinction is preserved. There is moderate generalized supratentorial volume loss with moderate ventriculomegaly, Ricardo's ratio calculated at 0.39. Moderate confluent white matter hypodensities in both cerebral hemispheres. Ther e is gyral crowding towards the vertex. Right mastoid air cells hypoplastic. Mild mucosal thickening right ethmoid air cells. Orbits and glob es are intact. IMPRESSION: Mild to moderate hydrocephalus/ventriculomegaly somewhat out of proportion to the degree of cerebral atrophy. Correlate for possible component of NPH. There is moderate confluent changes of chronic smal l vessel ischemic disease. Otherwise, no acute intracranial abnormality seen.
[2018-11-24 14:33] LABS: Creatine Kinase MB 0.5 ng/mL (0.0-2.4); Troponin I 0.015 ng/mL (0.000-0.034)
[2018-11-24 14:33] LABS: Appearance,Urine Cloudy (Clear); Bacteria,Urine Rare /hpf; Bilirubin,Urine Negative (Negative); Blood,Urine Negative (Negative); Color,Urine Light Yellow; Glucose,Urine (UA) Negative (Negative); Ketones,Urine Negative (Negative); Leukocyte Esterase,Urine Trace (Negative); Mucus,Urine Rare /hpf; Nitrite,Urine Negative (Negative); Protein,Urine Negative (Negative); Squamous Epithelial Cell,Urine 4 /hpf (0-4); Urobilinogen,Urine <2.0 mg/dL (<2.0); WBC,Urine 2 /hpf (0-5)
--- NOTE | 2018-11-24 14:40 | XR ---
EXAMINATION TYPE: XR chest 2V DATE OF EXAM: 11/24/2018 COMPARISON: None HISTORY: 78-year-old female with weakness TECHNIQUE: AP and lateral views FINDINGS: Heart mildly enlarged. Mild elongation thoracic aorta. Mild diffuse interstitial prominence. No krystian consolidation or pleural effusion. IMPRESSION: 1. Mild cardiomegaly. 2. Mild diffuse interstitial prominence could be chronic. Correlate to exclude mild pulmonary vascula r congestion.
--- NOTE | 2018-11-24 14:44 | XR ---
EXAMINATION TYPE: XR Hip Complete 2 views LT, XR knee complete 3 views LT DATE OF EXAM: 11/24/2018 COMPARISON: NONE HISTORY: 78-year-old female with pain and weakness FINDINGS: Left hip: Mild degenerative spurring of the left hip. Stimulator array within the left side of the pelvis. Oste openia. No acute fracture or dislocation. Left knee: Osteopenia. No knee joint effusion. Extensor mechanism is intact. No acute fracture, subluxation, or dislocation. IMPRESSION: Left hip and left knee without acute osseous abnormalities seen. Mild osteoarthrosis at the left hip.
[2018-11-24] MEDS ORDERED: hydrALAZINE HCL 20 MG/ML 1 ML VIAL IVP STA ×2 (15:26→17:27)
[2018-11-24] MEDS ORDERED: NALOXONE 0.4 MG/ML 1 ML VIAL IV PRN (16:06)
[2018-11-24] MEDS: SODIUM CHLORIDE 0.9% 1,000 ML IV SCH ×2 (17:34→20:03)
--- NOTE | 2018-11-24 18:00 | P.HPIM ---
History of Present Illness H&P Date: 11/24/18 Chief Complaint: Generalized weakness, placement 78-year-old female with PMH of hypertension presents to the ED for generalized weakness and frequent falls. Patient was sent from her primary care provider's clinic Dr. Padilla. Patient reports suffering frequent falls, last one on Wednesday. Patient states that she was showering, held up by her when she told him that she had to sit down. Patient reports that she was simply not strong enough to continue standing upright. Patient reports that this weakness has been ongoing for the past month. Patient complains of left hip and knee pain which has been progressively getting worse over the past month. Patient claims that the pain is not what makes her fall. Patient also reports intermittent left lower extremity swelling. She has underwent a vascular duplex with her PCP which has been negative. Her son also reports that she is underwent a stress test one week ago with Dr. Linda, results unknown. Patient reports a poor appetite over the past month as well. Patient reports that her mood is well. Patient states that she lives with her and receives help from her son. She denies any headaches, nausea, vomiting, fever, cough, chest pain, shortness of breath, palpitations, changes in urination or bowel habits. In the ED, patient underwent extensive evaluation. CT brain showed mild to moderate hydrocephalus and ventriculomegaly, correlate for possible NPH. Chest x-ray showed diffuse interstitial prominence. Knee x-ray and hip x-ray were unremarkable for acute changes. Patient is admitted for generalized weakness, placement, physical therapy and occupational therapy on board. Review of Systems All systems: negative Past Medical History Past Medical History: Hyperlipidemia, Hypertension, Osteoarthritis (OA), Rheumatoid Arthritis (RA) History of Any Multi-Drug Resistant Organisms: None Reported Past Surgical History: Appendectomy, Bladder Surgery, Breast Surgery, Cholecystectomy, Hysterectomy, Tonsillectomy Additional Past Surgical History / Comment(s): Left breast benign excisional bx , bladder suspension, rectocele Past Anesthesia/Blood Transfusion Reactions: No Reported Reaction Past Psychological History: No Psychological Hx Reported Smoking Status: Former smoker Past Alcohol Use History: None Reported Past Drug Use History: None Reported Medications and Allergies Home Medications Medication Instructions Recorded Confirmed Type Atorvastatin [Lipitor] 20 mg PO DAILY 06/21/18 11/24/18 History Furosemide [Lasix] 20 mg PO DAILY 06/21/18 11/24/18 History Nadolol [Corgard] 20 mg PO DAILY 06/21/18 11/24/18 History Potassium Chloride [K-Tab ER] 10 meq PO DAILY 06/21/18 11/24/18 History Losartan [Cozaar] 50 mg PO DAILY 10/25/18 11/24/18 History Allergies Allergy/AdvReac Type Severity Reaction Status Date / Time No Known Allergies Allergy Verified 11/24/18 13:04 Physical Exam Vitals: Vital Signs Temp Pulse Resp BP Pulse Ox 11/24/18 17:10 54 L 18 180/82 98 11/24/18 16:50 55 L 18 173/101 99 11/24/18 16:20 54 L 16 175/84 99 11/24/18 16:10 49 L 12 204/92 99 11/24/18 16:00 49 L 13 195/83 99 11/24/18 15:50 50 L 17 195/83 99 11/24/18 15:40 49 L 20 195/83 100 11/24/18 15:30 51 L 16 197/87 99 11/24/18 15:10 49 L 20 204/70 78 L 11/24/18 14:40 51 L 19 213/76 99 11/24/18 14:30 50 L 18 205/78 100 11/24/18 14:20 60 18 189/76 98 11/24/18 12:33 97.7 F 55 L 16 197/79 95 Intake and Output 11/24/18 11/24/18 11/24/18 06:59 14:59 22:59 Other: Weight 68.039 kg General: [non toxic], [no distress], [appears at stated age] Derm: [warm], [dry] Head: [atraumatic], [normocephalic], [symmetric] Eyes: [EOMI], [no lid lag], [anicteric sclera] Mouth: [no lip lesion], [mucus membranes moist] Cardiovascular: [S1S2 reg], [bradycardic] Lungs: [CTA bilateral], [no rhonchi, no rales] , [no accessory muscle use] Abdominal: [soft], [ nontender to palpation], [no guarding], [no appreciable organomegaly] Ext: [no gross muscle atrophy], [no edema], [no contractures], [limited range of motion of the left knee, left hip due to pain] Neuro: [ CN II-XI grossly intact], [no focal neuro deficits] Psych: [Alert], [oriented], [appropriate affect] Results CBC & Chem 7: 11/24/18 13:30 11/24/18 13:30 Labs: Abnormal Lab Results - Last 24 Hours (Table) 11/24/18 11/24/18 Range/Units 13:30 14:18 BUN 21 H (7-17) mg/dL Glucose 103 H (74-99) mg/dL Urine Appearance Cloudy H (Clear) Ur Leukocyte Esterase Trace H (Negative) Urine Bacteria Rare H (None) /hpf Urine Mucus Rare H (None) /hpf Thrombosis Risk Factor Assmnt - Choose All That Apply Any of the Below Risk Factors Present?: Yes Each Factor Represents 1 point: Obesity (BMI >25) Other Risk Factors: Yes Each Risk Factor Represents 3 Points: Age 75 years or older Thrombosis Risk Factor Assessment Total Risk Factor Score: 4 Thrombosis Risk Factor Assessment Level: Moderate Risk Assessment and Plan Assessment: Assessment and Plan 1. Generalized weakness 2. Left knee pain, left hip pain 3. Hypertension 4. Rheumatoid arthritis 5. DVT and GI prophylaxis Her generalized weakness has been ongoing over the past month. She has had frequent falls at home and needs constant supervision. I will attempt to call Dr. Padilla tomorrow morning regarding any workup that has been done for her weakness. Patient does complain of left hip and left knee pain that could've happened during a previous fall. Though x-rays are negative, her knee and hip pain might be contributing to her frequent falls (arthritis of the knee or hip, referred pain from the hip to the knee). We will get physical therapy and occupational therapy to evaluate. We will follow-up B12, folate and RPR. Her home medications of Lasix, Losartan and Nadolol will be resumed for hypertension. She is started on Lovenox for DVT prophylaxis. Patient is expected to be admitted for less than 48 hours. Social work consult has been placed.
[2018-11-24] MEDS: ACETAMINOPHEN TAB 325 MG TAB PO PRN (20:29)
[2018-11-24 21:06] VITALS: BMI 31.3
[2018-11-25 04:43] VITALS: RESP 16
[2018-11-25] MEDS: LOSARTAN 50 MG TAB PO SCH (08:19)
[2018-11-25] MEDS: FUROSEMIDE 20 MG TAB PO SCH (08:19)
[2018-11-25] MEDS: NADOLOL 20 MG TAB PO SCH (08:19)
[2018-11-25] MEDS: ENOXAPARIN 40 MG/0.4 ML SYRINGE SQ SCH (08:19)
[2018-11-25] MEDS: ATORVASTATIN 20 MG TAB PO SCH (08:19)
--- NOTE | 2018-11-25 11:42 | P.PN ---
Subjective Progress Note Date: 11/25/18 Principal diagnosis: Generalized weakness Patient was seen and examined. No acute events overnight. Patient reports profound generalized weakness. She reports that she ate most of her breakfast this morning. She denies any pains at this time. She does however report that her knees feel weird bilaterally. She endorses a history of rheumatoid arthritis for which she has not been treated for. She denies any chest pain, shortness of breath or palpitations. Objective - Vital Signs Vital signs: Vital Signs Temp 97.9 F 11/25/18 04:42 Pulse 55 L 11/25/18 04:42 Resp 16 11/25/18 04:42 BP 171/67 11/25/18 04:42 Pulse Ox 94 L 11/25/18 04:42 Intake & Output 11/24/18 11/25/18 11/25/18 18:59 06:59 18:59 Intake Total 520 Balance 520 Weight 68.039 kg Intake: Intake, IV Titration 100 Amount Sodium Chloride 0.9% 1, 100 000 ml @ 20 mls/hr IV . Q24H [facility] Rx#:[id number] Oral 420 Other: Voiding Method Diaper Bedside Commode Incontinent Incontinent # Voids 5 - Exam General: [non toxic], [no distress], [appears at stated age] Derm: [warm], [dry] Head: [atraumatic], [normocephalic], [symmetric] Eyes: [EOMI], [no lid lag], [anicteric sclera] Mouth: [no lip lesion], [mucus membranes moist] Cardiovascular: [S1S2 reg], [bradycardic] Lungs: [CTA bilateral], [no rhonchi, no rales] , [no accessory muscle use] Abdominal: [soft], [ nontender to palpation], [no guarding], [no appreciable organomegaly] Ext: [no gross muscle atrophy], [no edema], [no contractures], [limited range of motion of the left knee, left hip due to pain] Neuro: [ CN II-XI grossly intact], [no focal neuro deficits] Psych: [Alert], [oriented], [appropriate affect] - Labs CBC & Chem 7: 11/24/18 13:30 11/24/18 13:30 Labs: Abnormal Lab Results - Last 24 Hours (Table) 11/24/18 11/24/18 Range/Units 13:30 14:18 BUN 21 H (7-17) mg/dL Glucose 103 H (74-99) mg/dL Urine Appearance Cloudy H (Clear) Ur Leukocyte Esterase Trace H (Negative) Urine Bacteria Rare H (None) /hpf Urine Mucus Rare H (None) /hpf Assessment and Plan Assessment: Assessment and Plan 1. Generalized weakness 2. Left knee pain, left hip pain 3. Hypertension 4. Rheumatoid arthritis 5. DVT and GI prophylaxis 1. Her generalized weakness has been ongoing over the past month. She has had frequent falls at home and needs constant supervision. Patient does complain of left hip and left knee pain that could've happened during a previous fall. Though x-rays are negative, her knee and hip pain might be contributing to her frequent falls (arthritis of the knee or hip, referred pain from the hip to the knee). B12, TSH and RPR are within normal limits. 2. X-ray shows mild arthritis. We will get physical therapy and occupational therapy to evaluate. Pain management with Tylenol. 3. BP is 171/67. Her home medications of Lasix, Losartan and Nadolol will be resumed for hypertension. Monitor vitals, adjust medications as necessary. 4. Questionable history by patient, does not see a administrative resources associate. Will need adequate outpatient follow-up. 5. Lovenox. Workup negative thus far. She is pending physical therapy evaluation. I'll attempt to talk to Dr. Padilla today. Social work for placement.
[2018-11-25] MEDS: ACETAMINOPHEN TAB 325 MG TAB PO PRN ×2 (11:54→17:33)
[2018-11-25] MEDS: hydrALAZINE HCL 25 MG TAB PO SCH ×2 (14:40→21:29)
[2018-11-25] MEDS ORDERED: amLODIPine 5 MG TAB PO STA (16:46)
[2018-11-25] MEDS ORDERED: MELATONIN 3 MG TABLET PO SCH (21:00)
[2018-11-26 05:35] VITALS: TEMP 97.3
[2018-11-26] MEDS: ATORVASTATIN 20 MG TAB PO SCH (08:14)
[2018-11-26] MEDS: FUROSEMIDE 20 MG TAB PO SCH (08:14)
[2018-11-26] MEDS: LOSARTAN 50 MG TAB PO SCH (08:14)
[2018-11-26] MEDS: ENOXAPARIN 40 MG/0.4 ML SYRINGE SQ SCH (08:14)
[2018-11-26] MEDS: hydrALAZINE HCL 25 MG TAB PO SCH (08:14)
[2018-11-26] MEDS: NADOLOL 20 MG TAB PO SCH (08:16)
[2018-11-26 11:38] VITALS: BP 222/91; PULSE 53
[2018-11-26] MEDS ORDERED: amLODIPine 10 MG TAB PO SCH (12:15)
--- NOTE | 2018-11-26 12:22 | P.DS ---
Providers Date of admission: 11/24/18 16:35 Expected date of discharge: 11/26/18 Attending physician: Talia Leblanc MD Primary care physician: Bradley Padilla [facility] Course: 78-year-old female with PMH of hypertension presents to the ED for generalized weakness and frequent falls. Patient was sent from her primary care provider's clinic Dr. Padilla. Patient reports suffering frequent falls, last one on Wednesday. Patient states that she was showering, held up by her when she told him that she had to sit down. Patient reports that she was simply not strong enough to continue standing upright. Patient reports that this weakness has been ongoing for the past month. Patient complains of left hip and knee pain which has been progressively getting worse over the past month. Patient claims that the pain is not what makes her fall. Patient also reports intermittent left lower extremity swelling. She has underwent a vascular duplex with her PCP which has been negative. Her son also reports that she is underwent a stress test one week ago with Dr. Linda, results unknown. Patient reports a poor appetite over the past month as well. Patient reports that her mood is well. Patient states that she lives with her and receives help from her son. She denies any headaches, nausea, vomiting, fever, cough, chest pain, shortness of breath, palpitations, changes in urination or bowel habits. In the ED, patient underwent extensive evaluation. CT brain showed mild to moderate hydrocephalus and ventriculomegaly, correlate for possible NPH. Chest x-ray showed diffuse interstitial prominence. Knee x-ray and hip x-ray were unremarkable for acute changes. Patient is admitted for generalized weakness, placement, physical therapy and occupational therapy on board. With regard to her generalized weakness, reversible labs were performed. B12, TSH and RPR were within normal limits. Patient was noted to have left lower extremity weakness greater than right lower extremity weakness. CT of the brain showed mild to moderate hydrocephalus and ventriculomegaly, correlate for possible component of NPH, chronic small vessel ischemic disease. Physical therapy and occupational therapy was consulted and continued working with the patient. I discussed the case with the neuro automotive power electronics engineer at [facility] on 11/26. They have graciously accepted the patient for neurological evaluation. Patient was seen and examined prior to discharge. No acute events overnight. Patient continues to complain of profound weakness greater on the left side. She denies any chest pain, shortness of breath or palpitations. She is agreeable to going to [facility] for further evaluation. Her family is at bedside. General: [non toxic], [no distress], [appears at stated age] Derm: [warm], [dry] Head: [atraumatic], [normocephalic], [symmetric] Eyes: [EOMI], [no lid lag], [anicteric sclera] Mouth: [no lip lesion], [mucus membranes moist] Cardiovascular: [S1S2 reg], [bradycardic] Lungs: [CTA bilateral], [no rhonchi, no rales] , [no accessory muscle use] Abdominal: [soft], [ nontender to palpation], [no guarding], [no appreciable organomegaly] Ext: [no gross muscle atrophy], [no edema], [no contractures], [limited range of motion of the left knee, left hip due to pain] Neuro: [ CN II-XI grossly intact], [left lower extremity is 3 out of 5, right lower extremity is 4 out of 5. Upper extremity strength is equal bilaterally. Her gait is not tested today. Sensation is intact to touch in all 4 extremities.] Psych: [Alert], [oriented], [appropriate affect] Assessment and Plan 1. Generalized weakness, left greater than right 2. Left knee pain, left hip pain 3. Hypertension 4. Rheumatoid arthritis 5. DVT and GI prophylaxis 1. Her generalized weakness has been ongoing over the past month. She has had frequent falls at home and needs constant supervision. Patient does complain of left hip and left knee pain that could've happened during a previous fall. Though x-rays are negative, her knee and hip pain might be contributing to her frequent falls (arthritis of the knee or hip, referred pain from the hip to the knee). B12, TSH and RPR are within normal limits. CT of the brain shows mild to moderate hydrocephalus and ventriculomegaly, correlate for possible component of NPH, chronic small vessel ischemic disease. I have some concerns that the patient's weakness is related to NPH. She is unable to get an MRI due to her prosthetic implant. [facility] the patient for transfer for neurological evaluation. 2. X-ray shows mild arthritis. We will get physical therapy and occupational therapy to evaluate. Pain management with Tylenol. 3. BP is 191/74. Her home medications of Lasix, Losartan and Nadolol will be resumed for hypertension. Continue hydralazine. Will add amlodipine 10 mg by mouth daily. Monitor vitals, adjust medications as necessary. 4. Questionable history by patient, does not see a dry kiln burner. Will need adequate outpatient follow-up. 5. Lovenox. Workup negative thus far. She will need neurological evaluation for NPH. Transfer to [facility] today. Pertinent Studies: CT brain Hip and knee x-ray Patient Condition at Discharge: Stable Plan - Discharge Summary Discharge Rx Participant: Yes New Discharge Prescriptions: New amLODIPine [Norvasc] 10 mg PO DAILY tab hydrALAZINE HCL [Apresoline] 25 mg PO BID tab Melatonin 3 mg PO HS tablet Continue Atorvastatin [Lipitor] 20 mg PO DAILY Nadolol [Corgard] 20 mg PO DAILY Furosemide [Lasix] 20 mg PO DAILY Potassium Chloride [K-Tab ER] 10 meq PO DAILY Losartan [Cozaar] 50 mg PO DAILY Discharge Medication List Atorvastatin [Lipitor] 20 mg PO DAILY 06/21/18 [History] Furosemide [Lasix] 20 mg PO DAILY 06/21/18 [History] Nadolol [Corgard] 20 mg PO DAILY 06/21/18 [History] Potassium Chloride [K-Tab ER] 10 meq PO DAILY 06/21/18 [History] Losartan [Cozaar] 50 mg PO DAILY 10/25/18 [History] Melatonin 3 mg PO HS tablet 11/26/18 [Rx] amLODIPine [Norvasc] 10 mg PO DAILY tab 11/26/18 [Rx] hydrALAZINE HCL [Apresoline] 25 mg PO BID tab 11/26/18 [Rx] Follow up Appointment(s)/Referral(s): Bradley Padilla MD [Primary Care Provider] - 1-2 days [facility], [NON-STAFF] - 1 Week Activity/Diet/Wound Care/Special Instructions: Diet: Heart healthy Please follow-up with your primary care provider within 1-2 days of discharge. Please take all medications as advised. Transfer to [facility] today for neurological evaluation for possible NPH. Discharge Disposition: OTHER INSTITUTION NOT DEFINED
[2018-11-26] MEDS: ACETAMINOPHEN TAB 325 MG TAB PO PRN (14:57)
== END 2018-11-26 15:09 | disposition other institution (70) ==
LOC: EC 12:23 → 3NMEDONC 16:35
PROVIDERS: ADMIT Internal Medicine; ATTEND Internal Medicine
DX: R53.1 Weakness (principal); R29.6 Repeated falls; I10 Essential (primary) hypertension; M06.9 Rheumatoid arthritis, unspecified; M16.12 Unilateral primary osteoarthritis, left hip; M17.12 Unilateral primary osteoarthritis, left knee; G91.9 Hydrocephalus, unspecified; G93.89 Other specified disorders of brain; M79.89 Other specified soft tissue disorders; R32 Unspecified urinary incontinence; R63.0 Anorexia; E78.5 Hyperlipidemia, unspecified; Z79.899 Other long term (current) drug therapy; Z90.49 Acquired absence of other specified parts of digestive tract; Z87.891 Personal history of nicotine dependence; Z96.60 Presence of unspecified orthopedic joint implant; W19.XXXA Unspecified fall, initial encounter; E66.9 Obesity, unspecified; Z68.31 Body mass index [BMI] 31.0-31.9, adult
CPT/HCPCS: 96372 ×2; 96376; 96374; 99285; 36415; 93005; 97530 ×2; 97162; 97166; 80053; 84443; 82607; 82550; 82553; 83605; 83735; 84484; 85025; 85610; 85730; 81001; 86780; 73502; 73562; 71046; 70450; G0378 ×3; J0360; J1650 ×2

== ENCOUNTER → 2019-02-01 | Outpatient (CLI) | payer MEDICARE, BC ==
--- NOTE | 2019-02-02 09:37 | USB ---
Reason for exam: follow-up at short interval from prior study. History: Patient is postmenopausal. No known family history of cancer. Benign US breast aspiration single LT of the left breast, July 18, 2018. US discontinued breast bx LT of the left breast, June 29, 2018. Excisional biopsy, January 06, 2012. Excisional biopsy of the left breast. Took estrogen for 2 years. Physical Findings: Nurse did not find any significant physical abnormalities on exam. US Breast LT Left complete breast ultrasound includes all four quadrants, the retroareolar region and axilla. Finding demonstrates a 4 x 2 x 2mm lobular, hypoechoic lesion at 1 o'clock likely complicated cyst, a 5 x 2 x 5mm oval, hypoechoic lesion at 2 o'clock likely complicated cyst and a 6 x 6 x 6mm oval, mixed, hypoechoic lesion at 11 o'clock, some increase through transmission, smaller than on 05/25/18, may represent an involuting cyst. Precautionary 6 month follow up ultrasound to exclude cystic neoplasm. These results were verbally communicated with the patient and result sheet given to the patient on 02/01/19. ASSESSMENT: Probably benign, BI-RAD 3 RECOMMENDATION: Ultrasound of the left breast in 6 months.
== END | disposition home or self-care (01) ==
LOC: RADUSWWP 14:42
PROVIDERS: ATTEND Surgery
DX: R92.8 Other abnormal and inconclusive findings on diagnostic imaging of breast (principal)

== ENCOUNTER 2019-07-05 16:13 | Emergency (ER) | payer MEDICARE, BC ==
[2019-07-05 16:51] VITALS: RESP 18
[2019-07-05] MEDS ORDERED: MORPHINE SULFATE 2 MG/ML SYRINGE IM STA (17:34)
--- NOTE | 2019-07-05 18:17 | XR ---
EXAMINATION TYPE: XR chest 2V DATE OF EXAM: 07/05/2019 COMPARISON: 11/24/2018 HISTORY: Chest pain TECHNIQUE: Frontal and lateral views of the chest are obtained. FINDINGS: Heart is enlarged. There is no heart failure. There is no definite pleural effusion. Thora cic aorta is atheromatous. There is slight coarsening of the lung markings. Bony thorax appears intac t. IMPRESSION: Mild cardiomegaly. Minimal pulmonary fibrotic changes. No acute lung disease. No change.
--- NOTE | 2019-07-05 18:18 | XR ---
EXAMINATION TYPE: XR tibia fibula LT DATE OF EXAM: 07/05/2019 COMPARISON: NONE HISTORY: Pain TECHNIQUE: 2 views FINDINGS: There is some osteopenia. I see no displaced fracture. There is lucent line over the medial tibial condyle that could be a vertical hairline fracture. IMPRESSION: Possible hairline fracture medial tibial condyle. Knee x-ray recommended for further eval uation of clinically indicated. Soft tissue deformity over the anterior mid tibia consistent with possible laceration.
--- NOTE | 2019-07-05 18:20 | XR ---
EXAMINATION TYPE: XR wrist complete LT DATE OF EXAM: 07/05/2019 COMPARISON: NONE HISTORY: Pain TECHNIQUE: 4 views FINDINGS: There is impacted nondisplaced transverse fracture distal radial metaphysis. Carpal bones a re intact. There is nondisplaced fracture ulnar styloid process. There is no dislocation. There is na rrowing and spurring at the first carpometacarpal joint. IMPRESSION: Acute fractures of the distal radius and ulna. No displacement.
[2019-07-05] MEDS ORDERED: MORPHINE SULFATE 4 MG/ML SYRINGE IM STA (18:36)
[2019-07-05 18:37] VITALS: BP 191/66
[2019-07-05] MEDS ORDERED: DIPH,PERTUS(ACELL)TETVAC-LF 0.5 ML VIAL IM ONE (19:35)
--- NOTE | 2019-07-05 19:54 | ED ---
General Adult HPI - General Chief complaint: Fall Stated complaint: Fall, Wrist & Rib pain, laceration Time Seen by Provider: 07/05/19 17:00 Source: patient, RN notes reviewed, old records reviewed Mode of arrival: wheelchair Limitations: no limitations - History of Present Illness Initial comments: 78-year-old female patient presents ED chief complaint of fall. Patient points that she was walking wasn't in the rain, slipped on range, fell on her left side. Patient to complain of left wrist pain, left lateral rib pain, skin tear and pain to anterior Tibia/fibula. Patient denies any trauma head or neck. Patient denies any loss of consciousness. Systemic: Pt denies fatigue, fever/chills, rash. Pt denies weakness, night sweats, weight loss. Neuro: Pt denies headache, visual disturbances, syncope or pre-syncope. HEENT: Pt denies ocular discharge or irritation, otalgia, rhinorrhea, pharyngitis or notable lymphadenopathy. Cardiopulmonary: Pt denies chest pain, SOB, heart palpitations, dyspnea on exertion. Abdominal/GI: Pt denies abdominal pain, n/v/d. : Pt denies dysuria, burning w/ urination, frequency/urgency. Denies new onset urinary or bowel incontinence. MSK: Pt denies myalgia, loss of strength or function in extremities. Neuro: Pt denies new onset weakness, paresthesias. - Related Data Home Medications Medication Instructions Recorded Confirmed Atorvastatin [Lipitor] 20 mg PO DAILY 06/21/18 07/05/19 Furosemide [Lasix] 20 mg PO DAILY 06/21/18 07/05/19 Nadolol [Corgard] 10 mg PO DAILY 06/21/18 07/05/19 Losartan [Cozaar] 50 mg PO DAILY 10/25/18 07/05/19 Acetaminophen [Tylenol] 650 mg PO Q6H PRN 07/05/19 07/05/19 Carbidopa-Levodopa 25-100 mg 1 tab PO BID 07/05/19 07/05/19 [Sinemet 25-100] Famotidine 20 mg PO BID 07/05/19 07/05/19 Ibuprofen [Motrin] 600 mg PO Q8HR PRN 07/05/19 07/05/19 Mirabegron [Myrbetriq] 50 mg PO DAILY 07/05/19 07/05/19 amLODIPine [Norvasc] 5 mg PO BID 07/05/19 07/05/19 Previous Rx's Medication Instructions Recorded hydrALAZINE HCL [Apresoline] 25 mg PO BID tab 11/26/18 Hydrocodone/Acetaminophen [[place] 1 each PO Q6HR PRN #12 tab 07/05/19 5-325] Allergies Allergy/AdvReac Type Severity Reaction Status Date / Time No Known Allergies Allergy Verified 07/05/19 17:44 Review of Systems ROS Statement: Those systems with pertinent positive or pertinent negative responses have been documented in the HPI. ROS Other: All systems not noted in ROS Statement are negative. Past Medical History Past Medical History: Hyperlipidemia, Hypertension, Osteoarthritis (OA), Rheumatoid Arthritis (RA) Additional Past Medical History / Comment(s): uti-ecoli 10-25-18, past migraines. pt stated she both the flu and pne vaccine either in jul or aug 2018 movie writer unable to verify date at time of this admit,please f/u in am. History of Any Multi-Drug Resistant Organisms: None Reported Past Surgical History: Appendectomy, Bladder Surgery, Breast Surgery, Cholecystectomy, Hysterectomy, Tonsillectomy Additional Past Surgical History / Comment(s): Left breast benign excisional bx, bladder suspension, rectocele Past Anesthesia/Blood Transfusion Reactions: No Reported Reaction Additional Past Anesthesia/Blood Transfusion Reaction / Comment(s): has never received any blood tranfusions, clausterphobia. Past Psychological History: No Psychological Hx Reported Smoking Status: Former smoker Past Alcohol Use History: None Reported Past Drug Use History: None Reported - Past Family History Mother History Unknown: Yes Additional Family Medical History / Comment(s): pt was adopted Father History Unknown: Yes Additional Family Medical History / Comment(s): pt was adopted General Exam - General Exam Comments Initial Comments: Constitutional: NAD, AOX3, Pt has pleasant affect. HEENT: NC/AT, trachea midline, neck supple, no lymphadenopathy. Posterior pharynx non erythematous, without exudates. External ears appear normal, without discharge. Mucous membranes moist. Eyes PERRLA, EOM intact. There is no scleral icterus. No pallor noted. Cardiopulmonary: RRR, no murmurs, rubs or gallops, no JVD noted. Lungs CTAB in anterior and posterior king. No peripheral edema. Abdominal exam: Abdomen soft and non-distended. Abdomen non-tender to palpation in all 4 quadrants. Bowel sounds active in LLQ. No hepatosplenomegaly. No ecchymosis Neuro: CN II-XII intact. No nuchal rigidity. No raccon eyes, no rayo sign, no hemotympanum. No cervical spinal tenderness. MSK: Left distal radius tender to palpation. Neurovascularly intact. An spica splint placed. No rash intact after splint placement. Left skin tear anterior tibia region, irrigated, bandaged ER, unable to approximate. Left lateral is mildly tender to palpation, no ecchymoses. No posterior calf tenderness bilaterally, homans sign negative bilaterally. Posterior tibialis and radial pulse +2 bilaterally. Sensation intact in upper and lower extremities. Full active ROM in upper and lower extremities, 5/5 stregnth. Limitations: no limitations Course Vital Signs 07/05/19 07/05/19 16:47 18:36 Temperature 98.2 F Pulse Rate 106 H 66 Respiratory 18 18 Rate Blood Pressure 106/57 191/66 O2 Sat by Pulse 98 94 L Oximetry Medical Decision Making - Medical Decision Making 78-year-old female patient presents ED chief complaint of fall. Patient points that she was walking wasn't in the rain, slipped on range, fell on her left side. Patient to complain of left wrist pain, left lateral rib pain, skin tear and pain to anterior Tibia/fibula. Patient denies any trauma head or neck. Patient denies any loss of consciousness. Pt VSS, afebrile. Physical exam displayed: Left distal radius tender to palpation. Neurovascularly intact. An spica splint placed. No rash intact after splint placement. Left skin tear anterior tibia region, irrigated, bandaged ER, unable to approximate. Left lateral is mildly tender to palpation, no ecchymoses. Playful wrist displayed impacted nondisplaced changes fracture of distal radial metaphysis. Nondisplaced ulnar styloid process fracture. Plain film of tibia-fibula display possibly an fracture medial tibial condyle. Chest xray displayed no acute process. CT knees negative. Patient was discharged with outpatient orthopedic follow-up. Case discussed with Dr. Dickinson. Disposition Clinical Impression: Wrist fracture Disposition: HOME SELF-CARE Condition: Stable Instructions (If sedation given, give patient instructions): Wrist Fracture in Adults (ED) Additional Instructions: Patient to adhere to previously discussed treatment plan and will take medication(s) as directed. Patient to follow up with PCP in 1-2 days. Patient to return to ED if symptoms do not improve. Follow-up with orthopedic consult tomorrow. Use medications only as needed for pain. Return to ER if condition worsens. Prescriptions: Hydrocodone/Acetaminophen [[place] 5-325] 1 each PO Q6HR PRN #12 tab PRN Reason: Pain Is patient prescribed a controlled substance at d/c from ED?: Yes When asked, does pt state using other controlled substances?: No If prescribed controlled substance>3 days was MAPS reviewed?: Prescribed <3 Days If opioid is for acute pain is fill amount 7 days or less?: Yes If Rx opioid, was Start Talking consent form obtained?: Yes Referrals: Bradley Padilla MD [Primary Care Provider] - 1-2 days Brett Albrecht MD [STAFF PHYSICIAN] - 1-2 days
--- NOTE | 2019-07-05 20:05 | CT ---
EXAMINATION TYPE: CT knee LT wo con DATE OF EXAM: 07/05/2019 COMPARISON: None HISTORY: FALL, injury to LT knee. Pain CT DLP: 196.4 mGycm Automated exposure control for dose reduction was used. FINDINGS: Multiple axial sections were obtained from the distal femur to the mid tibia with no contrast. There is osteopenia. I see no joint effusion. Knee joint spaces are fairly normal. I see no focal bon e destruction. There is no evidence of a tibial fracture. IMPRESSION: OSTEOPENIA. NO ACUTE BONY ABNORMALITY. NO FRACTURE SEEN. NO SIGNIFICANT JOINT SPACE NARROWING.
[2019-07-05] MEDS ORDERED: ACET/COD 300 MG/30 MG STARTER PACK 6 TAB BTL PO STA (20:13)
[2019-07-05 20:49] VITALS: PULSE 72; TEMP 97.2
== END 2019-07-05 20:50 | disposition home or self-care (01) ==
LOC: EC 16:13
DX: S52.502A Unspecified fracture of the lower end of left radius, initial encounter for closed fracture (principal); S52.615A Nondisplaced fracture of left ulna styloid process, initial encounter for closed fracture; R07.81 Pleurodynia; E78.5 Hyperlipidemia, unspecified; I10 Essential (primary) hypertension; M19.90 Unspecified osteoarthritis, unspecified site; M06.9 Rheumatoid arthritis, unspecified; Z87.891 Personal history of nicotine dependence; Z79.1 Long term (current) use of non-steroidal anti-inflammatories (NSAID); Z79.899 Other long term (current) drug therapy; Z23 Encounter for immunization; W01.0XXA Fall on same level from slipping, tripping and stumbling without subsequent striking against object, initial encounter; Y92.89 Other specified places as the place of occurrence of the external cause
CPT/HCPCS: 73110; 73590; 71046; 73700; 90715; 99284; 29125; 96372 ×2; 90471; J2270 ×2

== ENCOUNTER 2019-07-09 11:29 | Emergency (ER) | payer MEDICARE, BC ==
[2019-07-09 11:43] VITALS: RESP 18
[2019-07-09] MEDS ORDERED: MORPHINE SULFATE 4 MG/ML SYRINGE IM STA (11:56)
--- NOTE | 2019-07-09 12:00 | ED ---
General Adult HPI - General Chief complaint: Back Pain/Injury Stated complaint: rib pain Time Seen by Provider: 07/09/19 11:30 Source: patient, family, EMS, RN notes reviewed Mode of arrival: EMS Limitations: no limitations - History of Present Illness Initial comments: Patient is a pleasant 78-year-old female presenting to the emergency department by EMS with complaints of left-sided rib pain. Family does arrive and helps provide history. Patient did have a fall 4 days ago. Patient was being assisted or by her and patient fell in the rainy weather. Patient did sustain left forearm fracture. Patient has had left-sided rib pain that has increased over the past couple of days. Discomfort is left anterior chest below the breast as well as left back in the same region. No dyspnea. Discomfort increases with movement. - Related Data Home Medications Medication Instructions Recorded Confirmed Atorvastatin [Lipitor] 20 mg PO DAILY 06/21/18 07/09/19 Furosemide [Lasix] 20 mg PO DAILY 06/21/18 07/09/19 Nadolol [Corgard] 10 mg PO DAILY 06/21/18 07/09/19 Losartan [Cozaar] 50 mg PO DAILY 10/25/18 07/09/19 Carbidopa-Levodopa 25-100 mg 1 tab PO BID 07/05/19 07/09/19 [Sinemet 25-100] Famotidine 20 mg PO BID 07/05/19 07/09/19 Mirabegron [Myrbetriq] 50 mg PO DAILY 07/05/19 07/09/19 amLODIPine [Norvasc] 5 mg PO BID 07/05/19 07/09/19 Acetaminophen Tab [Tylenol Tab] 500 mg PO Q6HR PRN 07/09/19 07/09/19 Hydrocodone/Acetaminophen [[place] 1 tab PO Q6HR PRN 07/09/19 07/09/19 5-325] Previous Rx's Medication Instructions Recorded hydrALAZINE HCL [Apresoline] 25 mg PO BID tab 11/26/18 Allergies Allergy/AdvReac Type Severity Reaction Status Date / Time No Known Allergies Allergy Verified 07/09/19 11:57 Review of Systems ROS Statement: Those systems with pertinent positive or pertinent negative responses have been documented in the HPI. ROS Other: All systems not noted in ROS Statement are negative. Constitutional: Denies: fever Eyes: Denies: eye pain ENT: Denies: ear pain Respiratory: Denies: cough, dyspnea Cardiovascular: Reports: as per HPI Endocrine: Denies: fatigue Gastrointestinal: Denies: abdominal pain Genitourinary: Denies: dysuria Musculoskeletal: Reports: as per HPI Skin: Denies: rash Neurological: Denies: weakness Past Medical History Past Medical History: Hyperlipidemia, Hypertension, Osteoarthritis (OA), Rheumatoid Arthritis (RA) Additional Past Medical History / Comment(s): uti-ecoli 10-25-18, past migraines. pt stated she both the flu and pne vaccine either in jul or aug 2018 service writer unable to verify date at time of this admit,please f/u in am. History of Any Multi-Drug Resistant Organisms: None Reported Past Surgical History: Appendectomy, Bladder Surgery, Breast Surgery, Cholecystectomy, Hysterectomy, Tonsillectomy Additional Past Surgical History / Comment(s): Left breast benign excisional bx, bladder suspension, rectocele Past Anesthesia/Blood Transfusion Reactions: No Reported Reaction Additional Past Anesthesia/Blood Transfusion Reaction / Comment(s): has never received any blood tranfusions, clausterphobia. Past Psychological History: No Psychological Hx Reported Smoking Status: Former smoker Past Alcohol Use History: None Reported Past Drug Use History: None Reported - Past Family History Mother History Unknown: Yes Additional Family Medical History / Comment(s): pt was adopted Father History Unknown: Yes Additional Family Medical History / Comment(s): pt was adopted General Exam Limitations: no limitations General appearance: alert, in no apparent distress Head exam: Present: atraumatic Eye exam: Present: normal appearance Neck exam: Present: normal inspection. Absent: tenderness Respiratory exam: Present: normal lung sounds bilaterally, chest wall tenderness (Moderate to severe tenderness left anterior rib underneath the breast.) Cardiovascular Exam: Present: regular rate, normal rhythm GI/Abdominal exam: Present: soft. Absent: distended, tenderness Extremities exam: Present: other (Left forearm splint) Back exam: Present: tenderness (Left Posterior lateral ribs below the scapula). Absent: vertebral tenderness Neurological exam: Present: alert Psychiatric exam: Present: normal affect, normal mood Skin exam: Present: normal color, abrasion (Left Anterior bateman) Course Vital Signs 07/09/19 07/09/19 07/09/19 11:36 12:09 13:09 Temperature 97.9 F 98.3 F Pulse Rate 60 54 L Respiratory 18 18 18 Rate Blood Pressure 169/68 173/75 O2 Sat by Pulse 93 L 96 96 Oximetry Medical Decision Making - Medical Decision Making He should reevaluated and feels much better. Patient and family updated on results and need for follow-up. - Radiology Data Radiology results: image reviewed ( shows no acute process) Disposition Clinical Impression: Rib fracture Disposition: HOME SELF-CARE Condition: Stable Instructions (If sedation given, give patient instructions): Rib Fracture (ED) Additional Instructions: Please follow-up with orthopedics tomorrow as scheduled. Please also follow-up with primary care physician tomorrow. Consider follow-up with pain management or anesthesiology for injection of the rib for pain control. Return for difficulty breathing, increased pain, worsening or changing symptoms or other concerns. Is patient prescribed a controlled substance at d/c from ED?: No Referrals: Bradley Padilla MD [Primary Care Provider] - 1-2 days Time of Disposition: 13:33
[2019-07-09] MEDS ORDERED: MORPHINE SULFATE 4 MG/ML SYRINGE IVP STA (12:04)
--- NOTE | 2019-07-09 12:49 | XR ---
EXAMINATION TYPE: XR ribs LT w pa chest xray , 3 VIEWS DATE OF EXAM ORDERED: 07/09/2019 HISTORY: fall. COMPARISON: Previous study dated 07/05/2019. FINDINGS: Heart is mildly enlarged. There is a partial eventration right hemidiaphragm. The lungs ar e clear. There is no evidence of pneumothorax. No displaced rib fracture is seen. IMPRESSION: 1. CARDIOMEGALY. 2. NO DISPLACED RIB FRACTURES SEEN AT THIS TIME.
[2019-07-09 13:10] VITALS: BP 173/75; PULSE 54; TEMP 98.3
[2019-07-09] MEDS ORDERED: ACET/COD 300 MG/30 MG STARTER PACK 6 TAB BTL PO STA (14:03)
== END 2019-07-09 14:10 | disposition home or self-care (01) ==
LOC: EC 11:29
DX: S22.32XA Fracture of one rib, left side, initial encounter for closed fracture (principal); S80.812A Abrasion, left lower leg, initial encounter; S52.92XA Unspecified fracture of left forearm, initial encounter for closed fracture; E78.5 Hyperlipidemia, unspecified; I10 Essential (primary) hypertension; Z87.891 Personal history of nicotine dependence; Z79.899 Other long term (current) drug therapy; Z97.8 Presence of other specified devices; W19.XXXA Unspecified fall, initial encounter; Y92.009 Unspecified place in unspecified non-institutional (private) residence as the place of occurrence of the external cause; Z53.8 Procedure and treatment not carried out for other reasons
CPT/HCPCS: 71101; 99284; 96374; J2270

== ENCOUNTER → 2019-08-04 | Outpatient (CLI) | payer MEDICARE, BC ==
--- NOTE | 2019-08-04 12:04 | USB ---
Reason for exam: follow-up at short interval from prior study. History: Patient is postmenopausal. No known family history of cancer. Benign US breast aspiration single LT of the left breast, July 18, 2018. US discontinued breast bx LT of the left breast, June 29, 2018. Excisional biopsy, January 06, 2012. Excisional biopsy of the left breast. Took estrogen for 2 years. Physical Findings: Nurse Summary: palpable lump (nurse kp). US Breast Limited LT Left limited breast ultrasound including focal area of concern, retroareolar and axilla demonstrates a 0.6 x 0.6 x 0.6cm oval, mixed lesion at 11 o'clock BB, prior 12/10/15 larger, prior 0.6 x 0.6 x 0.6cm 02/01/19, a 0.3 x 0.3 x 0.3cm ova, cystic, complicated lesion at 12 o'clock, prior 0.3cm, and a 0.5 x 0.3 x 0.4cm oval, cystic, complicated lesion at 2 o'clock, prior 0.5 x 0.2 x 0.5cm. The 11 o'clock mass is smaller than in 2016 similar complexity. These results were verbally communicated with the patient and result sheet given to the patient on 08/04/19. ASSESSMENT: Benign, BI-RAD 2 RECOMMENDATION: Routine screening mammogram of both breasts. Patient is due now for mammogram.
== END | disposition home or self-care (01) ==
LOC: RADUSWWP 09:58
PROVIDERS: ATTEND Surgery
DX: R92.8 Other abnormal and inconclusive findings on diagnostic imaging of breast (principal)

== ENCOUNTER 2022-04-08 10:17 | Emergency (ER) | payer MEDICARE, BC ==
[2022-04-08 10:26] VITALS: TEMP 97.7
[2022-04-08] MEDS ORDERED: SODIUM CHLORIDE 0.9% 1,000 ML IV STA (10:43)
[2022-04-08] MEDS ORDERED: METOCLOPRAMIDE 5 MG/ML 2 ML VIAL IVP STA (10:43)
--- NOTE | 2022-04-08 10:50 | ED ---
Dizziness HPI - General Chief Complaint: Dizziness Stated Complaint: Dizziness Time Seen by Provider: 04/08/22 10:25 Source: patient, RN notes reviewed Mode of arrival: ambulatory - History of Present Illness Initial Comments: This is an 81-year-old female who presents to the emergency department for dizziness. This began last night when she was sitting with her . Descr ibes this as a room spinning sensation. She had associated nausea last night that has since resolved. Denies any chest pain or shortness of breath. She has never had a sensation like this before. Denies any hearing loss or pressure in the ears. She has had a cough for the last few days. Denies any fevers, chills, visual changes, sore throat, dyspnea, chest pain, palpitations, abdominal pain, vomiting, diarrhea, back pain, or headaches. MD Complaint: dizziness Onset/Timin -: days(s) Description: "room spinning" History of Same: No History of Trauma: No Associated Symptoms: cough - Related Data Home Medications Medication Instructions Recorded Confirmed Atorvastatin [Lipitor] 20 mg PO DAILY 06/21/18 07/09/19 Furosemide [Lasix] 20 mg PO DAILY 06/21/18 07/09/19 nadoloL [Corgard] 10 mg PO DAILY 06/21/18 07/09/19 Losartan [Cozaar] 50 mg PO DAILY 10/25/18 07/09/19 Carbidopa-Levodopa 25-100 mg 1 tab PO BID 07/05/19 07/09/19 [Sinemet 25-100] Famotidine 20 mg PO BID 07/05/19 07/09/19 Mirabegron [Myrbetriq] 50 mg PO DAILY 07/05/19 07/09/19 amLODIPine [Norvasc] 5 mg PO BID 07/05/19 07/09/19 Acetaminophen Tab [Tylenol Tab] 500 mg PO Q6HR PRN 07/09/19 07/09/19 Hydrocodone/Acetaminophen [[place]arlan 1 tab PO Q6HR PRN 07/09/19 07/09/19 5-325] Previous Rx's Medication Instructions Recorded hydrALAZINE HCL [Apresoline] 25 mg PO BID tab 11/26/18 Ibuprofen [Motrin] 600 mg PO Q6HR PRN #15 tab 07/09/19 Meclizine [Antivert] 12.5 mg PO Q8HR PRN #20 tablet 04/08/22 Metoclopramide [Reglan] 5 mg PO QID PRN #20 tab 04/08/22 Ondansetron Odt [Zofran Odt] 4 mg PO Q8HR PRN #15 tab 04/08/22 Allergies Allergy/AdvReac Type Severity Reaction Status Date / Time No Known Allergies Allergy Verified 07/09/19 11:57 Review of Systems ROS Statement: Those systems with pertinent positive or pertinent negative responses have been documented in the HPI. ROS Other: All systems not noted in ROS Statement are negative. Past Medical History Past Medical History: Hyperlipidemia, Hypertension, Osteoarthritis (OA), Rheumatoid Arthritis (RA) Additional Past Medical History / Comment(s): uti-ecoli 10-25-18, past migraines. pt stated she both the flu and pne vaccine either in jul or aug 2018 designer writer unable to verify date at time of this admit,please f/u in am. History of Any Multi-Drug Resistant Organisms: None Reported Past Surgical History: Appendectomy, Bladder Surgery, Breast Surgery, Cholecystectomy, Hysterectomy, Tonsillectomy Additional Past Surgical History / Comment(s): Left breast benign excisional bx, bladder suspension, rectocele Past Anesthesia/Blood Transfusion Reactions: No Reported Reaction Additional Past Anesthesia/Blood Transfusion Reaction / Comment(s): has never received any blood tranfusions, clausterphobia. Past Psychological History: No Psychological Hx Reported Smoking Status: Former smoker Past Alcohol Use History: None Reported Past Drug Use History: None Reported - Past Family History Mother History Unknown: Yes Additional Family Medical History / Comment(s): pt was adopted Father History Unknown: Yes Additional Family Medical History / Comment(s): pt was adopted General Exam Limitations: no limitations General appearance: alert, in no apparent distress Head exam: Present: atraumatic, normocephalic, normal inspection ENT exam: Present: normal exam, normal oropharynx, mucous membranes moist, TM's normal bilaterally, normal external ear exam Respiratory exam: Present: normal lung sounds bilaterally. Absent: respiratory distress, wheezes, rales, rhonchi, stridor Cardiovascular Exam: Present: regular rate, normal rhythm, normal heart sounds. Absent: systolic murmur, diastolic murmur, rubs, gallop, clicks Neurological exam: Present: alert, oriented X3, CN II-XII intact Psychiatric exam: Present: normal affect, normal mood Skin exam: Present: warm, dry, intact, normal color. Absent: rash Course Vital Signs 04/08/22 04/08/22 04/08/22 10:21 12:00 12:30 Temperature 97.7 F Pulse Rate 53 L 53 L 60 Respiratory 18 18 16 Rate Blood Pressure 161/59 146/76 146/76 O2 Sat by Pulse 95 97 98 Oximetry 04/08/22 04/08/22 13:00 13:30 Temperature Pulse Rate 52 L 56 L Respiratory 17 16 Rate Blood Pressure 135/69 142/75 O2 Sat by Pulse 98 97 Oximetry Medical Decision Making - Medical Decision Making This is an 81-year-old female who presents to the emergency department for dizziness. Potassium was low at 3.1, patient given 40 mEq of potassium for replacement. Patient also tested positive for COVID-19. She was given monoclonal antibody treatment. The rest of her lab work was nonactionable. Her chest x-ray revealed COPD changes. Discussed that the COVID infection likely caused inflammation to the vestibular portion of cranial nerve VIII, causing the dizziness. She has no neurological deficits to suggest a central lesion. Riccardo hendrix given IV fluids and Reglan, and reports improvement. The vestibular neuritis should resolve on its own and a couple of days, and we'll aim to manage her symptoms for the meantime. Rx for Reglan and Antivert sent to the pharmacy. Advised to begin taking one of these when the dizziness occurs, and if she has no improvement with one medication, she can try any other. She was also advised that these medications can be sedating. Zofran also sent to the pharmacy in the event she has any nausea that the Reglan does not treat. Return precautions reviewed in depth, the patient is instructed to return to the emergency department with any new, worsening, or concerning symptoms. Patient verbalized understanding. This case was discussed in detail with the attending ED physician. Presentation, findings, and treatment plan discussed in detail as well. - Lab Data Result diagrams: 04/08/22 10:51 04/08/22 10:51 Lab Results 04/08/22 04/08/22 04/08/22 Range/Units 10:51 10:51 10:51 WBC 6.9 (3.8-10.6) k/uL RBC 4.68 (3.80-5.40) m/uL Hgb 14.2 (11.4-16.0) gm/dL Hct 42.8 (34.0-46.0) % MCV 91.5 (80.0-100.0) fL MCH 30.5 (25.0-35.0) pg MCHC 33.3 (31.0-37.0) g/dL RDW 13.1 (11.5-15.5) % Plt Count 292 (150-450) k/uL MPV 7.8 Neutrophils % 79 % Lymphocytes % 14 % Monocytes % 5 % Eosinophils % 0 % Basophils % 0 % Neutrophils # 5.5 (1.3-7.7) k/uL Lymphocytes # 1.0 (1.0-4.8) k/uL Monocytes # 0.4 (0-1.0) k/uL Eosinophils # 0.0 (0-0.7) k/uL Basophils # 0.0 (0-0.2) k/uL Sodium 139 (137-145) mmol/L Potassium 3.1 L (3.5-5.1) mmol/L Chloride 103 (98-107) mmol/L Carbon Dioxide 24 (22-30) mmol/L Anion Gap 12 mmol/L BUN 8 (7-17) mg/dL Creatinine 0.51 L (0.52-1.04) mg/dL Est GFR (CKD-EPI)AfAm >90 (>60 ml/min/1.73 sqM) Est GFR (CKD-EPI)NonAf >90 (>60 ml/min/1.73 sqM) Glucose 126 H (74-99) mg/dL Calcium 8.5 (8.4-10.2) mg/dL Total Bilirubin 0.8 (0.2-1.3) mg/dL AST 18 (14-36) U/L ALT <6 (4-34) U/L Alkaline Phosphatase 82 (38-126) U/L Troponin I <0.012 (0.000-0.034) ng/mL Total Protein 6.2 L (6.3-8.2) g/dL Albumin 3.9 (3.5-5.0) g/dL TSH 0.668 (0.465-4.680) mIU/L Coronavirus (PCR) (Not Detectd) Influenza Type A RNA (Not Detectd) Influenza Type B (PCR) (Not Detectd) 04/08/22 04/08/22 Range/Units 10:51 10:51 WBC (3.8-10.6) k/uL RBC (3.80-5.40) m/uL Hgb (11.4-16.0) gm/dL Hct (34.0-46.0) % MCV (80.0-100.0) fL MCH (25.0-35.0) pg MCHC (31.0-37.0) g/dL RDW (11.5-15.5) % Plt Count (150-450) k/uL MPV Neutrophils % % Lymphocytes % % Monocytes % % Eosinophils % % Basophils % % Neutrophils # (1.3-7.7) k/uL Lymphocytes # (1.0-4.8) k/uL Monocytes # (0-1.0) k/uL Eosinophils # (0-0.7) k/uL Basophils # (0-0.2) k/uL Sodium (137-145) mmol/L Potassium (3.5-5.1) mmol/L Chloride (98-107) mmol/L Carbon Dioxide (22-30) mmol/L Anion Gap mmol/L BUN (7-17) mg/dL Creatinine (0.52-1.04) mg/dL Est GFR (CKD-EPI)AfAm (>60 ml/min/1.73 sqM) Est GFR (CKD-EPI)NonAf (>60 ml/min/1.73 sqM) Glucose (74-99) mg/dL Calcium (8.4-10.2) mg/dL Total Bilirubin (0.2-1.3) mg/dL AST (14-36) U/L ALT (4-34) U/L Alkaline Phosphatase (38-126) U/L Troponin I (0.000-0.034) ng/mL Total Protein (6.3-8.2) g/dL Albumin (3.5-5.0) g/dL TSH (0.465-4.680) mIU/L Coronavirus (PCR) Detected A (Not Detectd) Influenza Type A RNA Not Detected (Not Detectd) Influenza Type B (PCR) Not Detected (Not Detectd) - EKG Data EKG Comments: Electronic atrial pacemaker. Left ventricular hypertrophy. Ventricular rate 50 bpm, DC interval 210 ms, QRS 89 ms, QTC 439 ms. - Radiology Data Radiology results: report reviewed, image reviewed Disposition Clinical Impression: Acute vestibular neuritis Disposition: HOME SELF-CARE Instructions (If sedation given, give patient instructions): Vertigo (ED), Dizziness (ED) Additional Instructions: Return to the emergency department with any new, worsening, or concerning symptoms. When the dizziness occurs try taking the Antivert or Reglan. You can begin with either one, and if one of these does not work, try the other one. Be aware that these medications can be sedating. Take the Zofran as needed for nausea and vomiting. Follow up with your primary care provider in 1-2 days. Prescriptions: Meclizine [Antivert] 12.5 mg PO Q8HR PRN #20 tablet PRN Reason: Vertigo Metoclopramide [Reglan] 5 mg PO QID PRN #20 tab PRN Reason: Vertigo Ondansetron Odt [Zofran Odt] 4 mg PO Q8HR PRN #15 tab PRN Reason: Nausea And Vomiting Is patient prescribed a controlled substance at d/c from ED?: No Referrals: Bradley Padilla MD [Primary Care Provider] - 1-2 days
[2022-04-08 11:04] LABS: Basophils % (A) 0 %; Eosinophils % (A) 0 %; HCT 42.8 % (34.0-46.0); HGB 14.2 gm/dL (11.4-16.0); Lymphocytes % (A) 14 %; MCH 30.5 pg (25.0-35.0); MCHC 33.3 g/dL (31.0-37.0); MCV 91.5 fL (80.0-100.0); Mean Platelet Volume 7.8; Monocytes # (A) 0.4 k/uL (0-1.0); Monocytes % (A) 5 %; Neutrophils # (A) 5.5 k/uL (1.3-7.7); Neutrophils % (A) 79 %; Platelet Count 292 k/uL (150-450); RBC 4.68 m/uL (3.80-5.40); RDW 13.1 % (11.5-15.5); WBC 6.9 k/uL (3.8-10.6)
[2022-04-08 11:14] LABS: ALT <6 U/L (4-34); AST 18 U/L (14-36); African American GFR (CKD) >90 (>60 ml/min/1.73 sqM); Albumin 3.9 g/dL (3.5-5.0); Alkaline Phosphatase 82 U/L (38-126); Anion Gap 12 mmol/L; Blood Urea Nitrogen 8 mg/dL (7-17); Calcium 8.5 mg/dL (8.4-10.2); Carbon Dioxide 24 mmol/L (22-30); Chloride 103 mmol/L (98-107); Glucose 126 mg/dL (74-99); Non-African American GFR(CKD) >90 (>60 ml/min/1.73 sqM); Potassium 3.1 mmol/L (3.5-5.1); Sodium 139 mmol/L (137-145); Total Bilirubin 0.8 mg/dL (0.2-1.3); Total Protein 6.2 g/dL (6.3-8.2)
[2022-04-08] MEDS ORDERED: POTASSIUM CHLORIDE ER 20 MEQ TAB.ER PO STA (11:25)
--- NOTE | 2022-04-08 11:36 | XR ---
EXAMINATION TYPE: XR chest 2V DATE OF EXAM: 04/08/2022 COMPARISON: X-ray dated 07/09/2019 HISTORY: Cough and dizziness TECHNIQUE: Frontal and lateral views of the chest are obtained. FINDINGS: Background of COPD changes. Slightly congested pulmonary vasculature. Grossly unremarkable lungs othe rwise. No sizable pleural effusion or pneumothorax. No gross cardiomegaly. Aortic atherosclerotic calcification and tortuosity. Suspected osteopenia. Healed/healing fractures o f the posterior aspects of the left seventh and eighth ribs. Cholecystectomy clips. IMPRESSION: COPD changes and other incidental findings as described above.
[2022-04-08] MEDS ORDERED: BEBTELOVIMAB (EUA) 175 MG/2 ML VIAL IV ONE (12:30)
[2022-04-08 13:59] VITALS: BP 142/75; PULSE 56; RESP 16
== END 2022-04-08 13:59 | disposition home or self-care (01) ==
LOC: EC 10:17
DX: H81.20 Vestibular neuronitis, unspecified ear (principal); U07.1 COVID-19; I10 Essential (primary) hypertension; E78.5 Hyperlipidemia, unspecified; M06.9 Rheumatoid arthritis, unspecified; Z87.891 Personal history of nicotine dependence; Z79.899 Other long term (current) drug therapy
CPT/HCPCS: 93005; 80053; 84443; 84484; 85025; 87502; 87635; 71046; 99284; 96374; 96361; J2765; Q0222; 36415